=== PATIENT | male | born 1970 | race Caucasian/White ===

== ENCOUNTER 2017-02-08 11:41 | Emergency (ER) | payer BC, OTHER ==
[2017-02-08 13:17] VITALS: BP 142/63
--- NOTE | 2017-02-08 14:05 | UC ---
Skin Complaint HPI - HPI Summary HPI Summary: Patient is a 46yo M who arrives with perineum pain for 4 days which has become worse over the last day. He notes some pus drainage last night with a 2/10 pain while sitting and 0/10 pain while standing. he has never had this before. He denies previous MRSA or skin infections. He is a diabetic and has HTN. He takes several medications and has close follow up with his PCP. Denies other pain or concerns. He has not taken any medication for relief. - History of Current Complaint Hx Obtained From: Patient Onset/Duration: Gradual Onset Skin Exposure Onset/Duration: Days Ago Timing: Constant Onset Severity: Moderate Current Severity: Moderate Pain Intensity: 3 Pain Scale Used: 0-10 Numeric Location: Discrete - perineum Character: Pain, Redness, Raised, Painful Aggravating: Touch, Other - sitting Alleviating: Nothing Associated Signs & Symptoms: Positive: Negative <Chelle Garrett - Last Filed: 02/08/17 13:54> <Alem Langley - Last Filed: 02/09/17 07:05> - History of Current Complaint Chief Complaint: UCSkin Time Seen by Provider: 02/08/17 13:19 Stated Complaint: PAINFUL LUMP -PUS - Allergy/Home Medications Allergies/Adverse Reactions: Allergies Allergy/AdvReac Type Severity Reaction Status Date / Time No Known Allergies Allergy Verified 02/08/17 13:17 Review of Systems Constitutional: Negative Skin: Other - erythematous raised 2X2 lesion with slight warm to touch Eyes: Negative Cardiovascular: Negative Gastrointestinal: Negative Neurovascular: Negative Musculoskeletal: Negative Psychological: Negative All Other Systems Reviewed And Are Negative: Yes <Chelle Garrett - Last Filed: 02/08/17 13:54> PMH/Surg Hx/FS Hx/Imm Hx Previously Healthy: Yes Endocrine History Of: Reports: Diabetes Denies: Thyroid Disease Cardiovascular History Of: Reports: Hypertension Denies: Cardiac Disorders, Pacemaker/ICD Respiratory History Of: Denies: COPD, Asthma GI/ History Of: Denies: Ulcer Psychological History Of: Denies: Anxiety - Surgical History Surgical History: Yes Surgery Procedure, Year, and Place: salIVARY gland removed @ age 19, APPY 2014 - Family History Known Family History: Positive: Cardiac Disease, Hypertension - Social History Occupation: Employed Full-time Lives: With Family Alcohol Use: Occasionally Substance Use Type: None Smoking Status (MU): Never Smoked Tobacco Have You Smoked in the Last Year: No - Immunization History Most Recent Influenza Vaccination: fall 2010 Most Recent Tetanus Shot: unknown Most Recent Pneumonia Vaccination: 2011 <Chelle Garrett - Last Filed: 02/08/17 13:54> Physical Exam Triage Information Reviewed: Yes Appearance: Well-Appearing, No Pain Distress, Well-Nourished Vital Signs: Initial Vital Signs Temp 98.2 F 02/08/17 13:06 Pulse 88 02/08/17 13:06 Resp 20 02/08/17 13:06 BP 142/63 02/08/17 13:06 Pulse Ox 95 02/08/17 13:06 Vital Signs Reviewed: Yes Eye Exam: Normal Eyes: Positive: Conjunctiva Clear ENT Exam: Normal Respiratory: Positive: Chest non-tender, Lungs clear Cardiovascular Exam: Normal Cardiovascular: Positive: RRR Musculoskeletal Exam: Normal Musculoskeletal: Positive: Strength Intact Psychological: Positive: Normal Response To Family, Age Appropriate Behavior Skin: Positive: significant lesion(s) - erythematous painful indurated raised 2X2 lesion with slight warm to touch, draining white discharge <Chelle Garrett - Last Filed: 02/08/17 13:54> Vital Signs: Initial Vital Signs Temp 98.2 F 02/08/17 13:06 Pulse 88 02/08/17 13:06 Resp 20 02/08/17 13:06 BP 142/63 02/08/17 13:06 Pulse Ox 95 02/08/17 13:06 <Alem Langley - Last Filed: 02/09/17 07:05> Course/Dx - Course Course Of Treatment: erythematous painful indurated raised 2X2 lesion with slight warm to touch, draining white discharge. abscess draining copious amounts of pus. Provider used pressure to compress discharge out. culture obtained. cleaned wound. antibiotics x 10 days given for compromised area d/t redness, warmth and patient a diabetic. Patient is OK with discharge and will follow up with PCP. - Differential Diagnoses - Skin Complaint Differential Diagnoses: Abscess, Cellulitis, Impetigo - Diagnoses Provider Diagnoses: Abscess <Chelle Garrett - Last Filed: 02/08/17 13:54> Discharge <Chelle Garrett - Last Filed: 02/08/17 13:54> <Alem Langley - Last Filed: 02/09/17 07:05> - Discharge Plan Condition: Stable Disposition: HOME Prescriptions: Cephalexin CAP* [Keflex CAP*] 500 mg PO QID #40 cap MDD 4 Patient Education Materials: Abscess (ED) Forms: *Work Release Referrals: Jhonny Morales MD [Primary Care Provider] - Additional Instructions: Warm compresses 2-3 times daily. Warm baths will help Take antibiotics as prescribed Take a probiotic on opposite schedule of antibiotic to prevent co-occuring infections or diarrhea If symptoms become worse, please come back for a re-check We will call you if we need to switch the antibiotic that you are on. Images Perineum Male: 1 - painful red 2X2 raised indurated, draining white discharge <Chelle Garrett - Last Filed: 02/08/17 13:54> Attestation Statement User Type: Provider - I was available for consult. This patient was seen by the advanced practice provider. The patient was not presented to, seen by, or examined by me.-Summer <Alem Langley - Last Filed: 02/09/17 07:05>
== END 2017-02-08 13:54 | disposition home or self-care (01) ==
LOC: UCEAST 11:41
DX: L02.215 Cutaneous abscess of perineum (principal); E11.9 Type 2 diabetes mellitus without complications; I10 Essential (primary) hypertension
CPT/HCPCS: 87070; 87205; 87640; 87641; 99212; G0463

== ENCOUNTER 2018-05-02 22:06 | Emergency (ER) | payer BC, OTHER ==
[2018-05-03 00:29] LABS: Hematocrit 39 % (42-52); Hemoglobin 13.4 g/dl (14.0-18.0); Mean Corpuscular HGB Conc 35 g/dl (31-36); Mean Corpuscular Hemoglobin 28 pg (27-31); Mean Corpuscular Volume 81 fL (80-94); Mean Platelet Volume 7.9 um3 (7.4-10.4); Platelet Count 189 10^3/ul (150-450); Red Blood Count 4.78 10^6/ul (4.00-5.40); Red Cell Distribution Width 15 % (10.5-15); White Blood Count 12.1 10^3/ul (3.5-10.8)
[2018-05-03 00:39] LABS: EGFR Non-African American 99.3 (>60)
[2018-05-03 00:50] LABS: ABS Basophils 0.1 10^3/ul (0-0.2); ABS Eosinophils 0.1 10^3/ul (0-0.6); ABS Lymphocytes 1.9 10^3/ul (1.0-4.8); ABS Monocytes 1.3 10^3/ul (0-0.8); ABS Neutrophils 8.8 10^3/ul (1.5-7.7); ABS Nucleated RBC 0 10^3/ul; Eosinophil % 0.6 % (0-6); Lymphocyte % 15.3 % (25-47); Nucleated Red Blood Cells % 0.1
[2018-05-03 02:26] LABS: Urine Appearance Clear; Urine Blood Negative (Negative); Urine Color Straw; Urine Ketones 1+ (Negative); Urine Protein Negative (Negative); Urine Specific Gravity 1.029 (1.010-1.030); Urine Urobilinogen Negative (Negative)
[2018-05-03] MEDS ORDERED: NS 0.9% 1000 ML* 1,000 ML IV ONE (03:00)
[2018-05-03] MEDS ORDERED: Ondansetron INJ* 2 MG/ML VIAL IV ONE (03:00)
[2018-05-03] MEDS ORDERED: Ketorolac INJ* 30 MG/ML 1 ML VIAL IV PUSH ONE (03:00)
[2018-05-03] MEDS ORDERED: Potassium Chlor TAB* 20 MEQ TAB.ER PO ONE (03:01)
--- NOTE | 2018-05-03 04:14 | ED ---
Back Pain - HPI Summary HPI Summary: This is [facility] documenting for attending Dr. Stephen Tyler MD. A 48 y/o male presents to the ED c/o right sided back pain. According to the patient, the pain started in the back near the base of the rib cage yesterday morning. The pain is characterized to be sharp and intermittent. The patient noted he has a history of kidney stones, however the pain he exhibits today is different than to what he felt than. Currently, the pain is at a 3-4/10 in severity. Pt denies any fever, cough, CP, SOB, chills, N/V, or any change/ burning/pain with urination. He noted that the pain is aggravated with deep breathes. PMHx of DM, denies thrombosis. Still have gallbladder. Allergic to dust and pollen. - History of Current Complaint Chief Complaint: EDFlankPain Stated Complaint: BACK PAIN Time Seen by Provider: 05/03/18 01:57 Hx Obtained From: Patient Onset/Duration: Sudden Onset, Lasting Days, Still Present Onset/Duration: Started Days Ago Timing: Constant Severity Initially: Severe Severity Currently: Severe Pain Intensity: 9 Pain Scale Used: 0-10 Numeric Character: Sharp Aggravating Symptom(s): Other - Deep breathes Alleviating Symptom(s): Nothing Associated Signs And Symptoms: Negative: Fever - Allergies/Home Medications Allergies/Adverse Reactions: Allergies Allergy/AdvReac Type Severity Reaction Status Date / Time No Known Allergies Allergy Verified 05/03/18 02:00 Home Medications: Home Medications Empagliflozin [Jardiance] 10 mg PO DAILY 05/03/18 [History Confirmed 05/03/18] Metoprolol Tartrate 100 mg PO DAILY 05/03/18 [History Confirmed 05/03/18] PMH/Surg Hx/FS Hx/Imm Hx Endocrine/Hematology History: Reports: Hx Diabetes Denies: Hx Thyroid Disease Cardiovascular History: Reports: Hx Hypertension, Other Cardiovascular Problems/ Disorders - chronic le edema Denies: Hx Pacemaker/ICD Respiratory History: Denies: Hx Asthma, Hx Chronic Obstructive Pulmonary Disease (COPD) GI History: Denies: Hx Ulcer Musculoskeletal History: Denies: Hx Arthritis, Hx Osteoporosis Sensory History: Denies: Hx Glaucoma, Hx Hearing Aid Opthamlomology History: Denies: Hx Glaucoma Neurological History: Denies: Hx Headaches Psychiatric History: Denies: Hx Anxiety, Hx Panic Disorder - Surgical History Surgery Procedure, Year, and Place: salIVARY gland removed @ age 19, APPY 2013 - Immunization History Date of Tetanus Vaccine: Up to date Date of Influenza Vaccine: Fall 2011 Infectious Disease History: No Infectious Disease History: Denies: Hx Clostridium Difficile, Hx Hepatitis, Hx Human Immunodeficiency Virus (HIV), Hx of Known/Suspected MRSA, Hx Shingles, Hx Tuberculosis, Hx Known/ Suspected VRE, Hx Known/Suspected VRSA, History Other Infectious Disease, Traveled Outside the [place] in Last 30 Days - Family History Known Family History: Positive: Cardiac Disease, Hypertension - Social History Alcohol Use: Occasionally Substance Use Type: Reports: None Smoking Status (MU): Never Smoked Tobacco Have You Smoked in the Last Year: No Review of Systems Negative: Fever, Chills Negative: Chest Pain Negative: Shortness Of Breath, Cough Negative: Vomiting, Nausea Negative: burning, frequency, pain Positive: Other - POSITIVE: Back pain All Other Systems Reviewed And Are Negative: Yes Physical Exam - Summary Physical Exam Summary: GENERAL: Patient is a well developed and nourished male who is lying comfortable in the stretcher. Patient is not in any acute respiratory distress. HEAD AND FACE: Normocephalic EYES: PERRLA, EOMI x 2. EARS: Hearing grossly intact. MOUTH: Oropharynx within normal limits. NECK: Supple, trachea is midline, no adenopathy, no JVD, no carotid bruit. CHEST: Symmetric, no tenderness at palpation LUNGS: Clear to auscultation bilaterally. No wheezing or crackles. CVS: Regular rate and rhythm, S1 and S2 present, no murmurs or gallops appreciated. ABDOMEN: Soft, non-tender. Bowel sounds are normal. No abdominal abnormal pulsations. EXTREMITIES: Full ROM in all major joints, no edema, no cyanosis or clubbing. NEURO: Alert and oriented x 3. No acute neurological deficits. Speech is normal and follows commands. SKIN: Dry and warm Triage Information Reviewed: Yes Vital Signs On Initial Exam: Initial Vitals Temp Pulse Resp BP Pulse Ox 98.7 F 98 18 153/88 95 05/02/18 22:08 05/02/18 22:08 05/02/18 22:08 05/02/18 22:08 05/02/18 22:08 Vital Signs Reviewed: Yes Diagnostics - Vital Signs Vital Signs Temp Pulse Resp BP Pulse Ox 05/03/18 03:00 89 149/89 95 05/03/18 02:30 91 149/85 96 05/03/18 02:01 83 163/82 96 05/03/18 02:00 86 96 05/03/18 01:59 81 96 05/03/18 00:31 97.9 F 87 16 143/88 96 05/02/18 22:08 98.7 F 98 18 153/88 95 - Laboratory Lab Results: Lab Results 05/03/18 05/03/18 05/03/18 Range/Units 00:15 00:15 00:15 WBC 12.1 H (3.5-10.8) 10^3/ul RBC 4.78 (4.00-5.40) 10^6/ul Hgb 13.4 L (14.0-18.0) g/dl Hct 39 L (42-52) % MCV 81 (80-94) fL MCH 28 (27-31) pg MCHC 35 (31-36) g/dl RDW 15 (10.5-15) % Plt Count 189 (150-450) 10^3/ul MPV 7.9 (7.4-10.4) um3 Neut % (Auto) 72.7 (38-83) % Lymph % (Auto) 15.3 L (25-47) % [place] % (Auto) 10.4 H (0-7) % Eos % (Auto) 0.6 (0-6) % Baso % (Auto) 1.0 (0-2) % Absolute Neuts (auto) 8.8 H (1.5-7.7) 10^3/ul Absolute Lymphs (auto) 1.9 (1.0-4.8) 10^3/ul Absolute Monos (auto) 1.3 H (0-0.8) 10^3/ul Absolute Eos (auto) 0.1 (0-0.6) 10^3/ul Absolute Basos (auto) 0.1 (0-0.2) 10^3/ul Absolute Nucleated RBC 0 10^3/ul Nucleated RBC % 0.1 D-Dimer, Quantitative < 200 (Less Than 230) ng/mL Sodium 131 L (135-145) mmol/L Potassium 3.2 L (3.5-5.0) mmol/L Chloride 94 L (101-111) mmol/L Carbon Dioxide 24 (22-32) mmol/L Anion Gap 13 H (2-11) mmol/L BUN 21 (6-24) mg/dL Creatinine 0.83 (0.67-1.17) mg/dL Est GFR ( Amer) 120.2 (>60) Est GFR (Non-Af Amer) 99.3 (>60) BUN/Creatinine Ratio 25.3 H (8-20) Glucose 493 H (70-100) mg/dL Calcium 9.1 (8.6-10.3) mg/dL Total Bilirubin 0.40 (0.2-1.0) mg/dL AST 15 (13-39) U/L ALT 23 (7-52) U/L Alkaline Phosphatase 71 (34-104) U/L C-Reactive Protein 67.05 H (<8.01) mg/L Total Protein 7.9 (6.4-8.9) g/dL Albumin 4.0 (3.2-5.2) g/dL Globulin 3.9 (2-4) g/dL Albumin/Globulin Ratio 1.0 (1-3) Lipase 37 (11.0-82.0) U/L Urine Color Urine Appearance Urine pH (5-9) Ur Specific [place]olt (1.010-1.030) Urine Protein (Negative) Urine Ketones (Negative) Urine Blood (Negative) Urine Nitrate (Negative) Urine Bilirubin (Negative) Urine Urobilinogen (Negative) Ur Leukocyte Esterase (Negative) Urine Glucose (Negative) 18 Range/Units 02:18 WBC (3.5-10.8) 10^3/ul RBC (4.00-5.40) 10^6/ul Hgb (14.0-18.0) g/dl Hct (42-52) % MCV (80-94) fL MCH (27-31) pg MCHC (31-36) g/dl RDW (10.5-15) % Plt Count (150-450) 10^3/ul MPV (7.4-10.4) um3 Neut % (Auto) (38-83) % Lymph % (Auto) (25-47) % [place] % (Auto) (0-7) % Eos % (Auto) (0-6) % Baso % (Auto) (0-2) % Absolute Neuts (auto) (1.5-7.7) 10^3/ul Absolute Lymphs (auto) (1.0-4.8) 10^3/ul Absolute Monos (auto) (0-0.8) 10^3/ul Absolute Eos (auto) (0-0.6) 10^3/ul Absolute Basos (auto) (0-0.2) 10^3/ul Absolute Nucleated RBC 10^3/ul Nucleated RBC % D-Dimer, Quantitative (Less Than 230) ng/mL Sodium (135-145) mmol/L Potassium (3.5-5.0) mmol/L Chloride (101-111) mmol/L Carbon Dioxide (22-32) mmol/L Anion Gap (2-11) mmol/L BUN (6-24) mg/dL Creatinine (0.67-1.17) mg/dL Est GFR ( Amer) (>60) Est GFR (Non-Af Amer) (>60) BUN/Creatinine Ratio (8-20) Glucose (70-100) mg/dL Calcium (8.6-10.3) mg/dL Total Bilirubin (0.2-1.0) mg/dL AST (13-39) U/L ALT (7-52) U/L Alkaline Phosphatase (34-104) U/L C-Reactive Protein (<8.01) mg/L Total Protein (6.4-8.9) g/dL Albumin (3.2-5.2) g/dL Globulin (2-4) g/dL Albumin/Globulin Ratio (1-3) Lipase (11.0-82.0) U/L Urine Color Straw Urine Appearance Clear Urine pH 5.0 (5-9) Ur Specific [place] 1.029 (1.010-1.030) Urine Protein Negative (Negative) Urine Ketones 1+ A (Negative) Urine Blood Negative (Negative) Urine Nitrate Negative (Negative) Urine Bilirubin Negative (Negative) Urine Urobilinogen Negative (Negative) Ur Leukocyte Esterase Negative (Negative) Urine Glucose 3+(>=500 mg/dl) A (Negative) Result Diagrams: 05/03/18 00:15 05/03/18 00:15 Lab Statement: Any lab studies that have been ordered have been reviewed, and results considered in the medical decision making process. - CT CT CHEST/A/P CT Interpretation Completed By: Radiologist - 1. Right basilar atelectasis. 2. Mild cardiomegaly. 3. A small hiatal hernia. ED physician reviewed this radiology report. Back Pain Course/Dx - Course Course Of Treatment: A 48 y/o male presents to the ED c/o right sided back pain. According to the patient, the pain started in the back near the base of the rib cage yesterday morning. The pain is characterized to be sharp and intermittent. A CT Chest/Abdomen/Pelvis revealed 1. Right basilar atelectasis. 2. Mild cardiomegaly. 3. A small hiatal hernia. In the ED course, the patient recieved Visipaque, Toradol, Emerson Clor Er Tab, Zofran and IV fluids. The patient will be discharged with a diagnosis of back pain. Patient is to follow up with PCP in 2-3 days. Pt is agreeable with this plan. - Diagnoses Provider Diagnoses: Back pain Discharge - Sign-Out/Discharge Documenting (check all that apply): Patient Departure - DISCHARGE - Discharge Plan Condition: Stable Disposition: HOME Prescriptions: Cyclobenzaprine TAB* [Flexeril 10 MG TAB*] 10 mg PO BID #20 tab Ibuprofen 800 mg PO TID #20 tablet Patient Education Materials: Back Pain (ED) Referrals: Jhonny Morales MD [Primary Care Provider] - 2 Days (FOLLOW UP WITH PCP IN 2-3 DAYS.) Additional Instructions: RETURN TO ED FOR ANY NEW OR WORSENING SYMPTOMS. - Billing Disposition and Condition Condition: STABLE Disposition: Home
[2018-05-03] MEDS ORDERED: Iodixanol* (CONTRAST) 320 MG/ML 100 ML SDV IV ONE (04:47)
[2018-05-03 06:57] VITALS: BP 161/97
--- NOTE | 2018-05-03 08:15 | RAD ---
HISTORY: pain, right flank pain, no other history is provided COMPARISONS: None TECHNIQUE: Multiple contiguous axial CT scans were obtained of the chest, abdomen, and pelvis after the administration of intravenous contrast. Coronal and sagittal multiplanar reformations are submitted for review.. Oral contrast was not administered. Delayed images were obtained through the abdomen and pelvis. FINDINGS: CHEST NECK AND THYROID: The lower neck and thyroid are unremarkable. CHEST WALL: There is no lower cervical, axillary, or supraclavicular lymphadenopathy by size criteria. HEART AND PERICARDIUM: There is mild biatrial and biventricular enlargement. AORTA AND PULMONARY VASCULATURE: The aorta and pulmonary vasculature are normal. MEDIASTINUM: There is no mediastinal lymphadenopathy by size criteria. NIKKI: There is no hilar lymphadenopathy by size criteria. AIRWAY AND ESOPHAGUS: The airway is unremarkable, without endobronchial filling defect. The esophagus is grossly normal. LUNG PARENCHYMA: There is minimal linear atelectasis of the right lung base.] PLEURA: No pleural abnormalities are noted. BONES AND SOFT TISSUES: Minimal degenerative changes are noted. ABDOMEN/PELVIS: LIVER: The liver measures 24 cm in long axis. The liver is homogeneous in attenuation. BILE DUCTS: There is no intrahepatic or extrahepatic biliary dilatation. GALLBLADDER: The gallbladder is normal, without pericholecystic inflammatory change. PANCREAS: The pancreas is normal, without mass or ductal dilatation. SPLEEN: The spleen is mildly enlarged measuring up to 14 cm in long axis. UPPER GI TRACT: Evaluation of the gastrointestinal tract is limited by incomplete gastric distention. The upper GI tract is unremarkable. SMALL BOWEL & MESENTERY: The small bowel is normal in contour, course, and caliber. There is no obstruction or dilatation. COLON: The colon is normal in contour, course, caliber. There is no pericolonic inflammatory change. The appendix is not identified. There is post surgical change in the region of the cecum. ADRENALS: Normal bilaterally. KIDNEYS: Simple renal cysts are noted. There is no appreciable hydronephrosis or nephrolithiasis. BLADDER: The bladder is distended. PELVIC ORGANS: The prostate gland is normal. The seminal vesicles are symmetric. AORTA: The aorta is normal. IVC: Unremarkable LYMPH NODES: There is no lymphadenopathy by size criteria. ABDOMINAL WALL: There is no evidence for abdominal wall hernia. BONES AND SOFT TISSUES: Degenerative changes are noted most pronounced at L5-L4, L4-L5, and L5-S1. OTHER: None IMPRESSION: 1. HEPATOSPLENOMEGALY. 2. MILD CARDIOMEGALY. 3. MINIMAL RIGHT BASILAR ATELECTASIS. R0
== END 2018-05-03 07:00 | disposition home or self-care (01) ==
LOC: ED 22:06
DX: M54.9 Dorsalgia, unspecified (principal); R16.2 Hepatomegaly with splenomegaly, not elsewhere classified; I51.7 Cardiomegaly; J98.11 Atelectasis; E11.9 Type 2 diabetes mellitus without complications; Z79.84 Long term (current) use of oral hypoglycemic drugs; I10 Essential (primary) hypertension; Z87.442 Personal history of urinary calculi; Z82.49 Family history of ischemic heart disease and other diseases of the circulatory system
CPT/HCPCS: 36415; 71260; 74177; 80053; 81003; 83690; 85025; 85379; 86140; 96374; 99285; A9270-GY; J1885; J2405; Q9967

== ENCOUNTER 2018-05-17 13:00 | Inpatient (IN) | payer OTHER ==
--- NOTE | 2018-05-17 13:21 | ED ---
Respiratory - HPI Summary HPI Summary: This is [facility] documenting for attending Teddy Tyler MD. Pt is a 48 y/o M c/o SOB onset ~1 week ago. Pt was seen 2 weeks ago in the ER with back pain and possible pleurisy, per director of fundraising. He now presents to ED with Assoc. Sx: Increased HR, SOB, non-productive cough. Denies Hx of blood clots, cardiac issues. Aggr. factors: ambulation, deep breaths - onset cough. SHx: None. He notes that he took BP meds this AM. Patient was seen by Dr. Obregon today and was referred to the ED for further w/u and was found to be tachycardic, hypotensive in the office - History of Current Complaint Chief Complaint: EDShortnessOfBreath Stated Complaint: SOB Time Seen by Provider: 05/17/18 13:12 Hx Obtained From: Patient, Family/Flash Ranging Crewmember Onset/Duration: Sudden Onset Current Severity: None Pain Intensity: 0 Character: Cough (Nonproductive), Dyspnea at Rest, Dyspnea on Exertion Sputum Amount: None Aggravating Factor(s): Exertion, Movement, Deep Breaths - onsets cough Alleviating Factor(s): Nothing Associated Signs and Symptoms: SOB - Allergy/Home Medications Allergies/Adverse Reactions: Allergies Allergy/AdvReac Type Severity Reaction Status Date / Time No Known Allergies Allergy Verified 05/17/18 13:08 Home Medications: Home Medications Insulin GLARGINE(*) [Lantus(*)] 50 units SUBCUT DAILY MDD 100 units 05/17/18 [ History Confirmed 05/17/18] Metformin ER (NF) 1,000 mg PO DAILY 05/17/18 [History Confirmed 05/17/18] Metoprolol Succinate XL TAB* [Toprol XL TAB*] 100 mg PO DAILY 05/17/18 [History Confirmed 05/17/18] Multivitamins/Minerals TAB* [Theragran/minerals TAB*] 1 tab PO DAILY 05/17/18 [ History Confirmed 05/17/18] Potassium Chloride [K-Tab ER] 20 meq PO BID 05/17/18 [History Confirmed 05/17/18 ] PMH/Surg Hx/FS Hx/Imm Hx Endocrine/Hematology History: Reports: Hx Diabetes Denies: Hx Thyroid Disease Cardiovascular History: Reports: Hx Hypertension, Other Cardiovascular Problems/ Disorders - chronic le edema Denies: Hx Pacemaker/ICD Respiratory History: Denies: Hx Asthma, Hx Chronic Obstructive Pulmonary Disease (COPD) GI History: Denies: Hx Ulcer History: Denies: Hx Renal Disease Musculoskeletal History: Denies: Hx Arthritis, Hx Osteoporosis Sensory History: Denies: Hx Glaucoma, Hx Hearing Aid Opthamlomology History: Denies: Hx Glaucoma Neurological History: Denies: Hx Headaches Psychiatric History: Denies: Hx Anxiety, Hx Panic Disorder - Surgical History Surgery Procedure, Year, and Place: salIVARY gland removed @ age 19, APPY 2013 - Immunization History Date of Tetanus Vaccine: Up to date Date of Influenza Vaccine: Fall 2011 Infectious Disease History: No Infectious Disease History: Denies: Hx Clostridium Difficile, Hx Hepatitis, Hx Human Immunodeficiency Virus (HIV), Hx of Known/Suspected MRSA, Hx Shingles, Hx Tuberculosis, Hx Known/ Suspected VRE, Hx Known/Suspected VRSA, History Other Infectious Disease, Traveled Outside the [place] in Last 30 Days - Family History Known Family History: Positive: Cardiac Disease, Hypertension - Social History Occupation: Employed Full-time Lives: With Family Alcohol Use: Occasionally Substance Use Type: Reports: None Smoking Status (MU): Never Smoked Tobacco Have You Smoked in the Last Year: No Review of Systems Positive: Other - increased HR Positive: Shortness Of Breath, Cough - non-productive All Other Systems Reviewed And Are Negative: Yes Physical Exam - Summary Physical Exam Summary: GENERAL: Patient is a well developed and nourished __(M/F)__ who is lying comfortable in the stretcher. Patient is not in any acute respiratory distress. HEAD AND FACE: Normocephalic EYES: PERRLA, EOMI x 2. EARS: Hearing grossly intact. MOUTH: Oropharynx within normal limits. NECK: Supple, trachea is midline, no adenopathy, no JVD, no carotid bruit. CHEST: Symmetric, no tenderness at palpation LUNGS: Clear to auscultation bilaterally with decreased breath sound on the right lower lobe. No wheezing or crackles. CVS: Tachycardic, regular rhythm, S1 and S2 present, no murmurs or gallops appreciated. ABDOMEN: Soft, non-tender. Bowel sounds are normal. No abdominal abnormal pulsations. EXTREMITIES: Full ROM in all major joints, no edema, no cyanosis or clubbing. Chronic venous stasis changes in bilat LE. NEURO: Alert and oriented x 3. No acute neurological deficits. Speech is normal and follows commands. SKIN: Dry and warm Triage Information Reviewed: Yes Vital Signs On Initial Exam: Initial Vitals Temp Pulse Resp BP Pulse Ox 98.9 F 105 20 119/63 97 05/17/18 13:02 05/17/18 13:02 05/17/18 13:02 05/17/18 13:02 05/17/18 13:02 Vital Signs Reviewed: Yes Diagnostics - Vital Signs Vital Signs Temp Pulse Resp BP Pulse Ox 05/17/18 13:02 98.9 F 105 20 119/63 97 - Laboratory Result Diagrams: 05/17/18 13:47 05/17/18 13:47 Lab Statement: Any lab studies that have been ordered have been reviewed, and results considered in the medical decision making process. - CT C/T CTA CT Interpretation: Positive (See Comments) - IMPRESSION: Loculated right pleural effusion which is new since previous exam of May 03, 2018. Compressive atelectasis of the right lower lobe is noted. CT Interpretation Completed By: Radiologist - provider has reviewed report. - EKG 1349 Cardiac Rate: Tachycardia - 102 bpm EKG Interpretation: Q-waves seen in inferior leads. EKG Comparison: Other - similar to previous Disposition - Course Course Of Treatment: Pt is a 48 y/o M c/o SOB onset ~1 week ago. Workup is remarkable for leukocytosis with left shift, mild elevated troponin of 0.06. CTA chest shows no PE but shows a moderate sized loculated right pleural effusion which is new compared to CT scan that was done on April. I discussed the results with the patient in details. Patient was subsequently admitted to the hospitalist team. Patient remains chest pain-free. - Diagnoses Provider Diagnoses: Pleural effusion Discharge - Sign-Out/Discharge Documenting (check all that apply): Patient Departure - Discharge Plan Condition: Stable Disposition: ADMITTED TO [facility] Referrals: Jhonny Morales MD [Primary Care Provider] - - Billing Disposition and Condition Condition: STABLE Disposition: Admitted to [facility]
[2018-05-17] MEDS ORDERED: NS 0.9% 1000 ML* 1,000 ML IV ONE (13:39)
[2018-05-17 14:13] LABS: ABS Basophils 0.1 10^3/ul (0-0.2); ABS Eosinophils 0 10^3/ul (0-0.6); ABS Lymphocytes 1.8 10^3/ul (1.0-4.8); ABS Monocytes 1.5 10^3/ul (0-0.8); ABS Neutrophils 14.8 10^3/ul (1.5-7.7); ABS Nucleated RBC 0 10^3/ul; Eosinophil % 0.2 % (0-6); Hematocrit 34 % (42-52); Hemoglobin 11.3 g/dl (14.0-18.0); Lymphocyte % 10.1 % (25-47); Mean Corpuscular HGB Conc 33 g/dl (31-36); Mean Corpuscular Hemoglobin 27 pg (27-31); Mean Corpuscular Volume 82 fL (80-94); Mean Platelet Volume 6.6 um3 (7.4-10.4); Nucleated Red Blood Cells % 0; Platelet Count 392 10^3/ul (150-450); Red Blood Count 4.17 10^6/ul (4.00-5.40); Red Cell Distribution Width 16 % (10.5-15); White Blood Count 18.3 10^3/ul (3.5-10.8)
[2018-05-17] MEDS ORDERED: Iodixanol* (CONTRAST) 320 MG/ML 100 ML SDV IV SCH (14:13)
[2018-05-17 14:22] LABS: INR 1.33 (0.77-1.02)
[2018-05-17 14:49] LABS: EGFR Non-African American 103.6 (>60)
--- NOTE | 2018-05-17 14:49 | RAD ---
Indication: Evaluate for pulmonary embolus. Contrast: Administered 161.7 ml of VISAPAQUE 320 mg/ml There is suboptimal opacification of the pulmonary arteries. No obvious filling defects are noted in the main pulmonary arteries or the left and right pulmonary arteries. Thoracic aorta demonstrates no evidence of aortic dissection. No aneurysmal dilatation is noted. Small 3 to 5 mm pretracheal and AP window lymph nodes are noted. Right hilar adenopathy measuring up to 13 mm. There is a moderate-sized loculated pleural effusion on the right which is new since previous exam of May 03, 2018. Compressive atelectasis is noted. Left lung field is clear. Pleural-based density is noted in the right middle lobe. The visualized abdominal organs are unremarkable. No evidence of rib fracture is noted. IMPRESSION: Loculated right pleural effusion which is new since previous exam of May 03, 2018. Compressive atelectasis of the right lower lobe is noted. No obvious pulmonary embolus is noted although opacification is suboptimal. Small mediastinal lymph nodes of uncertain clinical significance.
[2018-05-17] MEDS ORDERED: cefTRIAXone(*) 1 GM in NS 0.9% 50 ML* 50 ML IVPB ONE (14:56)
[2018-05-17] MEDS ORDERED: Azithromycin IV(*) 500 MG in NS 0.9% 250 ML* 250 ML IVPB ONE (14:56)
[2018-05-17] MEDS ORDERED: Potassium Chlor TAB* 20 MEQ TAB.ER PO ONE ×2 (14:57→16:48)
[2018-05-17] MEDS ORDERED: Dextrose 50% Syringe 50 ML* 25 GM/50 ML SYRINGE IV PUSH PRN (16:48)
[2018-05-17] MEDS ORDERED: NS 0.9% 1000 ML* 1,000 ML IV SCH (17:15)
[2018-05-17] MEDS: Insulin LISPRO* 1 UNITS UNIT SUBCUT SCH (19:20)
[2018-05-17] MEDS: Potassium Chlor TAB* 20 MEQ TAB.ER PO SCH (20:21)
[2018-05-17] MEDS ORDERED: Cyclobenzaprine TAB* 10 MG PO SCH (21:00)
[2018-05-17] MEDS: Heparin VIAL(*) 5000 UNITS/ML VIAL (FIVE THOUSAND) SUBCUT SCH (23:31)
--- NOTE | 2018-05-18 01:46 | HP ---
CC: Dr. Morales; Dr. Aguila * HISTORY AND PHYSICAL: DATE OF ADMISSION: 05/17/18 PRIMARY CARE PROVIDER: Dr. Morales. CONSULTING SURGEON: Dr. Aguila. MY ATTENDING PHYSICIAN WHILE IN THE HOSPITAL: Mirna Mock DO * (report dictated by Nick Estrada NP) CHIEF COMPLAINT: 1. Cough. 2. Shortness of breath. HISTORY OF PRESENT ILLNESS: Mr. Gamboa is a 48-year-old male patient. He has a history of diabetes, hypertension, and morbid obesity and a history of sleep apnea for which he wears a CPAP for and he states he wears it every night. He is coming into the emergency department today stating that about 2 weeks ago he was here, seen in the ED. He was having pain on his right side, worse with taking a deep breath. It was mostly in his right back. He was felt to possibly have a pleurisy. He was sent to his PCP. He had been taking NSAIDs. He said the pain actually resolved; however, he has now noted that over the last several days, he has had progressive worsening shortness of breath. There has been no orthopnea. He has actually had weight loss. No weight gain. He has lost about 20 pounds unexpectedly since August. He said he has not been trying. He states that just anytime he coughs or takes a deep breath, it is really hurting on the right side and it is described as a sharp, stabbing pain. He has noticed that he has been very fatigued and with minimal exertion, he is getting really short of breath. He has not had any chest pressure, heaviness , tightness, or discomfort. No sharp, stabbing pains in the chest. It has been mostly in the right back, just below the shoulder area and near his right flank. He states he has not had any fevers or chills. He has not been having any vomiting or any abdominal discomfort. There has been no nausea, no diarrhea. He states that he has not noted any swelling in his legs, but he was concerned because he just was not getting any better. He went to see his PCP today and they sent him to the ER when it was noted by the PCP that he appeared to hypotensive. He appeared to be that he was mildly tachycardic and we were asked to evaluate for admission. PAST MEDICAL HISTORY: Significant for: 1. Diabetes. 2. Hypertension. 3. Obesity. 4. WILMAN. PAST SURGICAL HISTORY: 1. He has had a thyroid biopsy. 2. Submandibular gland removal. 3. Appendectomy 4 years ago. MEDICATIONS: His home medications according to the list provided include: 1. Multivitamin 1 tablet p.o. daily. 2. Flexeril 10 mg p.o. b.i.d. 3. Ibuprofen 800 mg p.o. t.i.d. 4. Hydrochlorothiazide 25 mg daily. 5. Glucotrol 20 mg p.o. b.i.d. 6. Viagra 100 mg p.o. daily p.r.n. per instructions. 7. Aspirin 325 mg daily. 8. Metformin 1000 mg p.o. daily. 9. Lisinopril 20 mg p.o. daily. 10. Bumex 4 mg p.o. b.i.d. 11. Lantus 50 units subcu daily. 12. Potassium 20 mEq p.o. b.i.d. 13. Victoza 1.8mg subcu daily. 14. Jardiance 10 mg daily. 15. Toprol-XL 100 mg p.o. daily. ALLERGIES TO MEDICATIONS: Include no known drug allergies. FAMILY HISTORY: His mother had diabetes as did his father. His father also had a history of CVA, DE, and CAD. SOCIAL HISTORY: He does not smoke. He does not drink. His surrogate decision maker would be his girlfriend, Haylee. REVIEW OF SYSTEMS: There is no documented fever. He did admit to having a significant weight change. He denies having any double vision. There is no ear discharge. He denies having any rhinorrhea. There was no sore throat. No thyroid enlargement. He denied any chest pain. There is dyspnea on exertion. There is no orthopnea. No nocturnal dyspnea. There was no abdominal pain. No nausea, no vomiting. There was no dysuria. There was no frequency. There was no seizure. No loss of conscious. No pruritus and no skin ulcerations. Review of 14 systems was completed, all others negative. PHYSICAL EXAMINATION GENERAL: At this time, Mr. Gamboa is a 48-year-old male patient. He appears to be older than stated age. He is sitting in the ED stretcher. He does not appear to be in any acute distress. VITAL SIGNS: Blood pressure 125/71, pulse 102, respirations 18, O2 sat 97% on room air, temperature 98.9. HEENT: Head: Atraumatic, normocephalic. Eyes: EOMs are intact. Sclerae anicteric and not pale. Throat: Oral mucosa appears to be dry. No oropharyngeal erythema. NECK: Supple. LUNGS: Diminished in the right side. He had equal diaphragmatic expansion. He does have a cough with taking deep breaths. HEART: Sounds S1, S2. He had a regular rate and rhythm. He had no murmurs, rubs, or gallops. ABDOMEN: Soft. It was flat. It was nontender. Bowel sounds were present. EXTREMITIES: Pulses were 2+ throughout. He had no peripheral edema. He is able to move all 4 extremities with 5/5 strength. NEUROLOGIC: He is awake. He is alert. He is oriented x3. He has no gross focal deficits. SKIN: Intact with the exception he does have an area of erythema noted to the pretibial area in the left lower extremity between the knee and the ankle. DIAGNOSTIC STUDIES/LAB DATA: Labs today revealing a WBC of 18.3, RBC of 4.17, hemoglobin of 11.3, hematocrit of 34, platelet count of 392. His INR was 1.33. PTT 26.9. Sodium was 136, potassium was 3.1, chloride of 94, bicarb of 31, BUN 13, creatinine 0.80, glucose of 73. Lactate 1.4. Calcium 8.6. Mag was 2.1. Total bili 0.4, AST 22, ALT 22, alk phos was 75. CK-MB 6.3. Troponin was 0.06. A repeat troponin was 0.01. BNP of 45. Albumin of 2.7. He had a chest, thorax CTA, which revealed loculated pleural effusion, which is new compared to previous exam on May 03, compressive atelectasis of the right lower lobe, no obvious PE, small mediastinal lymph nodes of uncertain significance. He had an EKG obtained today, which is showing a sinus tachycardia. He does have Q waves in lead III, which he has had previously. There is no new T wave inversions. No ST elevations were noted. It looks similar to the previous EKG with the exception of tachycardia is now new. Old medical records were reviewed. ASSESSMENT AND PLAN: Mr. Gamboa is a 48-year-old male patient coming into the ED today with complaints of again weight loss, back pain. On evaluation today, he had an indeterminate troponin, now it is 0.01 and he had what appeared to be a significant pleural effusion on the right side, he will be admitted under inpatient status for: 1. Right-sided pleural effusion. Again, etiology is unclear. Concern with 20 - pound weight loss. I do think that he needs either a chest tube if this is loculated and possible empyema or just a thoracentesis to start. I did touch base with Dr. Aguila. The patient is hemodynamically stable. At this point, we will try to get a thoracentesis done tomorrow at least to send off for cytology , cell counts, LDH, pH, protein, and cultures. I will get a legionella antigen and Strep pneumo antigen as this could certainly not be pneumonia. I will put him on antibiotics and we will continue to follow. 2. Elevated troponin. Again, the initial troponin was 0.06. It is now 0.01. I will go ahead and repeat another one in 3 hours. I am getting an echo. He will be placed on telemetry. He is not having any active cardiac symptoms. We will continue to follow. EKG appears to be stable. 3. Diabetes. He will be placed on lispro sliding scale. We will continue meds as prescribed. 4. Hypertension. Again in the office, he was hypotensive. He responded to fluids. I just question if he may have been dehydrated. He has not really been eating or drinking. He is on 2 diuretics. I am holding his blood pressure meds with the exception of a beta-norman and we will go ahead and monitor this and restart medications when able. 5. History of obstructive sleep apnea. I will put him on CPAP at night. 6. DVT prophylaxis: He is high risk. He will be placed on heparin subcu. 7. Code status: Full code. 8. Fluids, electrolytes, and nutrition: He can have a consistent carb diet. TIME SPENT: The time spent on the admission was 60 minutes, greater than half the time was spent [id number] with the patient obtaining my history and physical; other half time was spent going over the plan of care with the patient and implementing plan of care. I did discuss the plan of care with my attending, Dr. Mock; she is in agreement. NICK ESTRADA, TEACHER OF [employer]ILY [employer]ENCE [id number]/[facility] #: [id number] LAMINE
[2018-05-18] MEDS: Heparin VIAL(*) 5000 UNITS/ML VIAL (FIVE THOUSAND) SUBCUT SCH ×2 (05:05→12:41)
[2018-05-18 05:57] LABS: ABS Basophils 0 10^3/ul (0-0.2); ABS Eosinophils 0 10^3/ul (0-0.6); ABS Lymphocytes 1.3 10^3/ul (1.0-4.8); ABS Monocytes 1.2 10^3/ul (0-0.8); ABS Neutrophils 10.4 10^3/ul (1.5-7.7); ABS Nucleated RBC 0 10^3/ul; Eosinophil % 0.2 % (0-6); Hematocrit 34 % (42-52); Mean Corpuscular HGB Conc 33 g/dl (31-36); Mean Corpuscular Hemoglobin 27 pg (27-31); Mean Corpuscular Volume 82 fL (80-94); Mean Platelet Volume 6.5 um3 (7.4-10.4); Nucleated Red Blood Cells % 0; Platelet Count 343 10^3/ul (150-450); Red Cell Distribution Width 16 % (10.5-15)
[2018-05-18 06:14] LABS: EGFR Non-African American 118.9 (>60)
[2018-05-18] MEDS: Insulin LISPRO* 1 UNITS UNIT SUBCUT SCH ×3 (07:34→17:26)
[2018-05-18] MEDS ORDERED: Perflutren Lipid Microsphere* 3 ML VIAL ONE (07:54)
[2018-05-18] MEDS: Insulin GLARGINE(*) 1 UNITS UNIT SUBCUT SCH (08:36)
[2018-05-18] MEDS: Metoprolol Succinate XL TAB* 100 MG PO SCH (08:39)
[2018-05-18] MEDS: Potassium Chlor TAB* 20 MEQ TAB.ER PO SCH ×2 (08:40→20:08)
[2018-05-18] MEDS: Aspirin EC TAB* 325 MG PO SCH (08:40)
--- NOTE | 2018-05-18 09:35 | ECHO ---
Patient: [facility] Rec#: [id number] : 1970 Date: 05/18/2018 Age: 48y Height: 170 cm / 66.9 in Weight: 113 kg / 249.1 lbs Sex: M BSA: 2.22 Room#: 431 Admit Date#: 05/17/2018 Type: Inpatient Referring: Nick Estrada NP Reading: Stephen Cervantes MD Certified Pharmacy Tech: Mari Cochran RDCS,RDMS CC: Jhonny Morales MD Transthoracic Echocardiogram Indication: ABN EKG BP: 124/66 HR: 108 Rhythm: Tachycardia Findings History: DM, HTN, WILMAN Technical Comments: The study quality is fair. Left Ventricle: The left ventricular chamber size is normal. Mild concentric left ventricular hypertrophy is observed. Basal interventricular septum shows moderate thickening. There is a focal wall motion abnormality present.On contrast enhanced imaging of the LV, there appears to hypokinesis of the proximal to mid inferior wall. The estimated ejection fraction is 55-60%. There is an E to A reversal in the mitral valve flow pattern suggestive of diastolic dysfunction. Left Atrium: The left atrial chamber size is normal. Right Ventricle: The right ventricular chamber size and systolic function are within normal limits. Right Atrium: The right atrial cavity size is normal. Aortic Valve: The aortic valve is trileaflet. There is no evidence of aortic valve thickening. Systolic excursion of the aortic valve is normal. There is no evidence of aortic regurgitation. There is no evidence of aortic stenosis. Mitral Valve: There is mitral annular calcification. The mitral valve leaflets are mildly thickened. There is no evidence of mitral regurgitation. There is no evidence of mitral stenosis. Tricuspid Valve: The tricuspid valve leaflets are normal. There is no evidence of tricuspid valve regurgitation. Unable to estimate the right ventricular systolic pressure. Pulmonic Valve: The pulmonic valve appears normal. There is a trace pulmonic regurgitation. Pericardium: There is no significant pericardial effusion. Aorta: The aortic root appears normal. There is no dilatation of the aortic arch. Pulmonary Artery: The main pulmonary artery appears normal. Venous: The inferior vena cava appears normal in size. There is a greater than 50% respiratory change in the inferior vena cava dimension. Contrast: Definity was used to optimize study. A total of 2 ml was used Conclusions Somewhat suboptimal imaging due to lung tissue interference and body habitus. Mild concentric left ventricular hypertrophy is observed. There is a focal wall motion abnormality present.On contrast enhanced imaging of the LV, there appears to hypokinesis of the proximal to mid inferior wall. The estimated ejection fraction is 55-60%. No significant valvular disease: There is a trace pulmonic regurgitation. No reports of prior studies are offered for comparison. Measurements Name Value Normal Range RVIDd (AP) 2D 3 cm (0.9 - 2.6) RAd ISD 4CH 4.5 cm (3.4 - 4.9) RA (A4C)W 3.7 cm (2.9 - 4.6) IVSd (2D) 1.5 cm (0.6 - 1) LVPWd (2D) 1.2 cm (0.6 - 1) LVIDd (2D) 4.5 cm (3.6 - 5.4) LVIDs (2D) 2.5 cm - LV FS (2D) 43 % (25 - 45) Aortic Annulus 2.3 cm (1.4 - 2.6) Ao root diameter (2D) 3.2 cm (2.1 - 3.5) Ascending Ao 2.8 cm (2.1 - 3.4) Aortic arch 3.2 cm (1.8 - 3.4) LA dimension (AP) 2D 4.6 cm (2.3 - 3.8) LAd ISD 4CH 5.1 cm (2.9 - 5.3) LA ISD 4CH W 4.4 cm (2.5 - 4.5) Name Value Normal Range LA ESV BP (A/L) index 25 ml/m2 - Name Value Normal Range MV E-wave Vmax 1 m/sec - MV deceleration time 49 msec - MV A-wave Vmax 1.2 m/sec - MV E:A ratio 0.9 ratio - LV lateral e' Vmax 0.13 m/sec - LV E:e' lateral ratio 8 ratio - Name Value Normal Range AV Vmax 1.4 m/sec - AV VTI 22 cm - AV peak gradient 8 mmHg - AV mean gradient 4 mmHg - LVOT Vmax 1.2 m/sec - LVOT VTI 17 cm - LVOT peak gradient 6 mmHg - LVOT mean gradient 3 mmHg - PATRICK Vmax 1 m/sec - Name Value Normal Range MV Vmax 1.3 m/sec - MV VTI 18 cm - MV peak gradient 7 mmHg - MV mean gradient 4 mmHg - MVA (continuity VTI) 3.7 cm2 - Name Value Normal Range RAP 8 mmHg - IVC diameter 1.6 cm - Name Value Normal Range PV Vmax 1.2 m/sec - PV peak gradient 6 mmHg -
[2018-05-18] MEDS: NS 0.9% 1000 ML* 1,000 ML IV SCH (10:09)
[2018-05-18] MEDS ORDERED: Lidocaine 1% INJ* 10 MG/ML 30 ML SDV ONE ×2 (13:20→14:09)
[2018-05-18] MEDS ORDERED: HYDROmorphone INJ* 0.5 MG/0.5 ML SYRINGE IV SLOW PU ONE (14:00)
[2018-05-18] MEDS ORDERED: HYDROmorphone INJ* 0.5 MG/0.5 ML SYRINGE ONE (14:05)
[2018-05-18] MEDS ORDERED: HYDROmorphone INJ* 0.5 MG/0.5 ML SYRINGE IV SLOW PU PRN (14:42)
--- NOTE | 2018-05-18 15:03 | RAD ---
INDICATION: Chest tube insertion COMPARISON: CTA of the chest dated May 17, 2018 that shows a multifocal pleural fluid collection. TECHNIQUE: Single AP portable view of the chest was obtained. FINDINGS: Image quality is compromised due to the relative inferiority of a portable chest x-ray. There is been interval placement of a right-sided chest tube with the tip terminating at the midclavicular mid-level right lung. The heart and mediastinum exhibit normal size and contour. Corresponding to images seen on the prior CT, there is density obscuring the right lung base. There is no large pneumothorax. IMPRESSION: Interval placement of a right-sided chest tube as described above with density obscuring the right lung base corresponding to images on the recent CTA
--- NOTE | 2018-05-18 16:20 | PN ---
Subjective Date of Service: 05/18/18 Interval History: Patient continues to have cough when inhaling deeply. No Chest pain, pain before presentation mostly in back and pleuritic. No Sputum production. No known F/C. No smoking history. No recent hospitalizations or antibiotic use. No N/V abdominal pain, diarrhea, dysuria, or other pain. Has never had a stress test or UT to his knowledge. Sent in from PCP for concern for Q waves on EKG which were at least 4 years old. Family History: Unchanged from Admission Social History: Unchanged from Admission Past Medical History: Unchanged from Admission Objective Active Medications: Acetaminophen (Tylenol Tab*) 650 mg PO Q4H PRN PRN Reason: FEVER/PAIN Aspirin (Ecotrin Ec Tab*) 325 mg PO DAILY [facility] Last Admin: 05/18/18 08:40 Dose: 325 mg Cyclobenzaprine HCl (Flexeril Tab*) 10 mg PO BID PRN PRN Reason: SPASMS Dextrose (D50w Syringe 50 Ml*) 12.5 gm IV PUSH .FOR FS < 60 - SS PRN PRN Reason: FS < 60 Heparin Sodium (Porcine) (Heparin Vial(*)) 5,000 units SUBCUT Q8HR [facility] Hydromorphone HCl (Dilaudid Inj*) 0.5 mg IV SLOW PU Q1H PRN PRN Reason: PAIN Ceftriaxone Sodium 1,000 mg/ (Sodium Chloride) 50 mls @ 200 mls/hr IVPB Q24H [facility] Azithromycin 500 mg/ Sodium (Chloride) 250 mls @ 250 mls/hr IVPB Q24H [facility] Sodium Chloride (Ns 0.9% 1000 Ml*) 1,000 mls @ 100 mls/hr IV PER RATE [facility] Stop: 05/19/18 17:14 Last Admin: 05/18/18 10:09 Dose: 100 mls/hr Alteplase, Recombinant 10 mg/ (Sodium Chloride) 50 mls @ 0 mls/hr INTRAPLEUR ONCE ONE; Protocol Stop: 05/19/18 08:01 Dornase Erlin 5 mg/ Sodium (Chloride) 50 mls @ 0 mls/hr INTRAPLEUR ONCE ONE Stop: 05/19/18 08:01 Insulin Glargine (Lantus(*)) 50 units SUBCUT DAILY [facility] Last Admin: 05/18/18 08:36 Dose: 50 unit Insulin Human Lispro (Humalog*) 0 units SUBCUT AC HIRA; Protocol Last Admin: 05/18/18 12:15 Dose: 6 units Iodixanol (Visipaque* 320 (Contrast)) 92 ml IV ONCE [facility] Stop: 05/19/18 14:12 Last Admin: 05/17/18 14:35 Dose: 92 ml Metoprolol Succinate (Toprol Xl Tab*) 100 mg PO DAILY [facility] Last Admin: 05/18/18 08:39 Dose: 100 mg Potassium Chloride (Klor Con Er Tab*) 20 meq PO BID [facility] Last Admin: 05/18/18 08:40 Dose: 20 meq Vital Signs - 8 hr 05/18/18 05/18/18 05/18/18 08:26 11:11 15:14 Temperature 98.6 F 99.4 F Pulse Rate 118 104 113 Respiratory 16 20 18 Rate Blood Pressure 115/65 100/56 117/69 (mmHg) O2 Sat by Pulse 96 96 94 Oximetry Oxygen Devices in Use Now: None Appearance: Patient is a 48yo male who appears stated age and is sitting in the bed in [facility]. Eyes: No Scleral Icterus, PERRLA Ears/Nose/Mouth/Throat: NL Teeth, Lips, Gums, Clear Oropharnyx, Mucous Membranes Moist Neck: NL Appearance and Movements; NL JVP, Trachea Midline Respiratory: Symmetrical Chest Expansion and Respiratory Effort, - - Diminished breath sounds on right lower lobe. Cardiovascular: NL Sounds; No Murmurs; No JVD, RRR, No Edema Abdominal: NL Sounds; No Tenderness; No Distention, No Hepatosplenomegaly Lymphatic: No Cervical Adenopathy Extremities: No Edema, No Clubbing, Cyanosis, - - Skin changes consistent with venous insufficiency. Skin: No Rash or Ulcers, No Nodules or Sclerosis Neurological: Alert and Oriented x 3, NL Sensation, NL Muscle Strength and Tone , - - CN II-XII intact. Lines/Tubes/Other Access: Clean, Dry and Intact Chest Tube - Bloody drainage. Result Diagrams: 05/18/18 05:27 05/18/18 05:27 Assess/Plan/Problems-Billing Assessment: Patient is a 48yo male with a PMH for DM, HTN, WILMAN here with pleural effusion and elevated troponin with concern for pneumonia and chest tube placement. - Patient Problems (1) Pleural effusion Current Visit: Yes Status: Acute Code(s): J90 - PLEURAL EFFUSION, NOT ELSEWHERE CLASSIFIED SNOMED Code(s): 95450603 Comment: Unilateral. Likely cause of patient's pleuritic chest and back pain. Likely due to pneumonia with elevated WBC count and tachycardia. Continue azithromycin and ceftriaxone. Either from CAP or aspiration pneumonia. Unable to determine. Will treat for CAP pending culture and sensitivities. Urine antigens pending. pleural fluid analysis pending. Cytology pending. (2) Elevated troponin Current Visit: Yes Status: Acute Code(s): R74.8 - ABNORMAL LEVELS OF OTHER SERUM ENZYMES SNOMED Code(s): 140189673 Comment: Likely from demand ischemis from likely pneumonia. Echo and EKG shows possibility of old inferior wall UT. Will need stress test when out of acute phase of illness. (3) Diabetes Current Visit: Yes Status: Acute Code(s): E11.9 - TYPE 2 DIABETES MELLITUS WITHOUT COMPLICATIONS SNOMED Code(s): 01040994 Comment: SSI, moderate control. Hemoglobin A1c pending. May resume home meds at discharge. Adjustments based on A1c. Previously uncontrolled. (4) HTN (hypertension) Current Visit: Yes Status: Acute Code(s): I10 - ESSENTIAL (PRIMARY) HYPERTENSION SNOMED Code(s): 03540731 Comment: Borderline hypotensive. Hold medications except for metoprolol. (5) WILMAN (obstructive sleep apnea) Current Visit: Yes Status: Acute Code(s): G47.33 - OBSTRUCTIVE SLEEP APNEA ( ADULT) (PEDIATRIC) SNOMED Code(s): 17847604 Comment: Continue CPAP. (6) DVT prophylaxis Current Visit: Yes Status: Acute Code(s): HRZ0618 - SNOMED Code(s): 709662447 Comment: Heparin held until AM due to Chest tube. (7) Full code status Current Visit: Yes Status: Acute Code(s): Z78.9 - OTHER SPECIFIED HEALTH STATUS SNOMED Code(s): 678303389 Status and Disposition: Inpatient.
[2018-05-18] MEDS: cefTRIAXone VIAL(*) 1,000 MG in NS 0.9% 50 ML* 50 ML IVPB SCH (16:56)
[2018-05-18] MEDS: Azithromycin IV(*) 500 MG in NS 0.9% 250 ML* 250 ML IVPB SCH (17:42)
[2018-05-18] MEDS: Acetaminophen TAB* 325 MG PO PRN (20:08)
[2018-05-19] MEDS: NS 0.9% 1000 ML* 1,000 ML IV SCH (01:13)
[2018-05-19 05:28] LABS: ABS Basophils 0.1 10^3/ul (0-0.2); ABS Eosinophils 0 10^3/ul (0-0.6); ABS Lymphocytes 1.8 10^3/ul (1.0-4.8); ABS Nucleated RBC 0 10^3/ul; Eosinophil % 0.2 % (0-6); Hematocrit 31 % (42-52); Hemoglobin 10.5 g/dl (14.0-18.0); Lymphocyte % 13.6 % (25-47); Mean Corpuscular HGB Conc 34 g/dl (31-36); Mean Corpuscular Hemoglobin 28 pg (27-31); Mean Corpuscular Volume 82 fL (80-94); Mean Platelet Volume 6.5 um3 (7.4-10.4); Nucleated Red Blood Cells % 0; Platelet Count 326 10^3/ul (150-450); Red Blood Count 3.84 10^6/ul (4.00-5.40); Red Cell Distribution Width 15 % (10.5-15); White Blood Count 12.9 10^3/ul (3.5-10.8)
[2018-05-19 05:42] LABS: EGFR Non-African American 136.5 (>60)
[2018-05-19] MEDS: Heparin VIAL(*) 5000 UNITS/ML VIAL (FIVE THOUSAND) SUBCUT SCH ×3 (05:46→21:33)
--- NOTE | 2018-05-19 07:49 | RAD ---
Indication: Check chest tube placement. Single frontal view of the chest performed at 0434 hours was reviewed. Comparison is made with previous exam dated May 18, 2018. Cardiomegaly is noted. Right basilar atelectasis is noted. This has occurred since previous exam. Right chest tube left lung field is clear. IMPRESSION: RIGHT CHEST TUBE IN PLACE WITH RIGHT BASILAR ATELECTASIS.
[2018-05-19] MEDS ORDERED: Alteplase (CATHFLO)* 10 MG in NS 0.9% 50 ML* 40 ML INTRAPLEUR ONE (08:00)
[2018-05-19] MEDS ORDERED: DORNASE ALFA 1 mg/ml(NF) 5 MG in NS 0.9% 50 ML* 45 ML INTRAPLEUR ONE (08:00)
--- NOTE | 2018-05-19 08:09 | PN ---
Progress Note - Progress Note Date of Service: 05/19/18 Note: POD#1 s/p right chest tube for empyema Mild pain, no dyspnea Chest tube drainage total 650 ml. Still purulent. Was bloody last night Will hold on fibrinolytics this AM, check CT If loculations are mostly resolved, it may not be worth the risk of fibrinolysis.
--- NOTE | 2018-05-19 09:03 | RAD ---
HISTORY: F/U empyema COMPARISONS: May 17, 2018 TECHNIQUE: Multiple contiguous axial CT scans of the chest were obtained without intravenous contrast. Coronal and sagittal multiplanar reformations are also submitted for review. FINDINGS: The study is limited by the lack of intravenous contrast. This limits evaluation of the solid organs and vasculature. NECK AND THYROID: The lower neck and thyroid are unremarkable. CHEST WALL: There is no lower cervical, axillary, or supraclavicular lymphadenopathy by size criteria. HEART AND PERICARDIUM: The heart is unremarkable. AORTA AND PULMONARY VASCULATURE: The aorta and pulmonary vasculature are normal. MEDIASTINUM: There is no mediastinal lymphadenopathy by size criteria. NIKKI: There is no hilar lymphadenopathy by size criteria. AIRWAY AND ESOPHAGUS: The airway is unremarkable, without endobronchial filling defect. The esophagus is grossly normal. LUNG PARENCHYMA: There is consolidation of the basal segments of the right lower lobe. PLEURA: A right-sided chest tube is noted. Again noted is loculated pleural effusion, decreased in size from the previous examination, with persistent small locules lung right middle lobe. There is a small component of pneumothorax. UPPER ABDOMEN: The upper abdomen is unremarkable. BONES AND SOFT TISSUES: No bone or soft tissue abnormalities are noted. OTHER: None. IMPRESSION: 1. RIGHT-SIDED CHEST TUBE WITH PERSISTENT BUT IMPROVED LOCULATED RIGHT PLEURAL EFFUSION. 2. THERE IS CONSOLIDATION OF THE RIGHT LOWER LOBE.
[2018-05-19] MEDS: oxyCODONE TAB* 5 MG TAB PO PRN ×2 (09:13→14:41)
[2018-05-19] MEDS: Lisinopril TAB* 10 MG PO SCH (09:14)
[2018-05-19] MEDS: Metoprolol Succinate XL TAB* 100 MG PO SCH (09:16)
[2018-05-19] MEDS: Aspirin EC TAB* 325 MG PO SCH (09:17)
[2018-05-19] MEDS: Potassium Chlor TAB* 20 MEQ TAB.ER PO SCH ×2 (09:17→21:32)
[2018-05-19] MEDS: Insulin GLARGINE(*) 1 UNITS UNIT SUBCUT SCH (09:17)
[2018-05-19] MEDS: Insulin LISPRO* 1 UNITS UNIT SUBCUT SCH ×3 (09:18→17:16)
[2018-05-19] MEDS: cefTRIAXone VIAL(*) 1,000 MG in NS 0.9% 50 ML* 50 ML IVPB SCH (14:52)
--- NOTE | 2018-05-19 15:03 | OP ---
CC: Dr. Mario Hodgson; Dr. Jhonny Morales * DATE OF OPERATION: 05/18/18 - ROOM #431 DATE OF : 72 SURGEON: Mario Hodgson MD PRE-OP DIAGNOSIS: Right loculated pleural effusion/empyema. POST-OP DIAGNOSIS: Right loculated pleural effusion/empyema. OPERATIVE PROCEDURE: Placement of right chest tube. INDICATIONS: The patient is a 48-year-old male who was admitted to the hospital with increasing cough and dyspnea and found to have a loculated right pleural effusion. I saw him and discussed the situation with him and I recommended a chest tube; given the loculations, I thought that would work the best. He understood the procedure and is agreeable to it. DESCRIPTION OF PROCEDURE: With the patient supine, but inclined towards his left, the right was prepped with antiseptic, draped in a sterile fashion. Sterile gown, gloves, and drapes were utilized. Local anesthetic was administered at approximately the region of the 8th rib laterally and a clamp was used to enter the pleural space and purulent fluid was forthcoming. It flowed relatively freely. A 32-Sami chest tube was placed into the pleural space and sutured to the skin using 0 silk. A bulky gauze dressing was placed and this was hooked to a Pleur-evac, and a total of about 500 mL of this cloudy fluid was forthcoming. A sample sent to the laboratory for culture. He tolerated this well. A bandage was placed and he will return to the medical floor. [id number]/[facility] #: [id number] MTDD
[2018-05-19] MEDS: Azithromycin IV(*) 500 MG in NS 0.9% 250 ML* 250 ML IVPB SCH (15:55)
--- NOTE | 2018-05-19 17:17 | PN ---
Subjective Date of Service: 05/19/18 Interval History: Patient had fever overnight with bloody drainage around chest tube. No cough, SOB, CP, N/V, abdominal pain, dysuria, subjective F/C, dizziness on standing, palpitations. Moderate pain from chest tube site. Decreased blood from chest tube today. Family History: Unchanged from Admission Social History: Unchanged from Admission Past Medical History: Unchanged from Admission Objective Active Medications: Acetaminophen (Tylenol Tab*) 650 mg PO Q4H PRN PRN Reason: FEVER/PAIN Last Admin: 05/18/18 20:08 Dose: 650 mg Aspirin (Ecotrin Ec Tab*) 325 mg PO DAILY [facility] Last Admin: 05/19/18 09:17 Dose: 325 mg Cyclobenzaprine HCl (Flexeril Tab*) 10 mg PO BID PRN PRN Reason: SPASMS Dextrose (D50w Syringe 50 Ml*) 12.5 gm IV PUSH .FOR FS < 60 - SS PRN PRN Reason: FS < 60 Heparin Sodium (Porcine) (Heparin Vial(*)) 5,000 units SUBCUT Q8HR [facility] Last Admin: 05/19/18 14:41 Dose: 5,000 units Hydromorphone HCl (Dilaudid Inj*) 0.5 mg IV SLOW PU Q1H PRN PRN Reason: PAIN Ceftriaxone Sodium 1,000 mg/ (Sodium Chloride) 50 mls @ 200 mls/hr IVPB Q24H [facility] Last Admin: 05/19/18 14:52 Dose: 200 mls/hr Azithromycin 500 mg/ Sodium (Chloride) 250 mls @ 250 mls/hr IVPB Q24H [facility] Last Admin: 05/19/18 15:55 Dose: 250 mls/hr Sodium Chloride (Ns 0.9% 1000 Ml*) 1,000 mls @ 100 mls/hr IV PER RATE [facility] Stop: 05/19/18 17:14 Last Admin: 05/19/18 01:13 Dose: 100 mls/hr Insulin Glargine (Lantus(*)) 50 units SUBCUT DAILY [facility] Last Admin: 05/19/18 09:17 Dose: 50 unit Insulin Human Lispro (Humalog*) 0 units SUBCUT AC [facility]; Protocol Last Admin: 05/19/18 12:03 Dose: 9 units Lisinopril (Prinivil Tab*) 20 mg PO DAILY [facility] Last Admin: 05/19/18 09:14 Dose: 20 mg Metoprolol Succinate (Toprol Xl Tab*) 100 mg PO DAILY [facility] Last Admin: 05/19/18 09:16 Dose: 100 mg Oxycodone HCl (Roxycodone Tab*) 5 mg PO Q4H PRN PRN Reason: PAIN Last Admin: 05/19/18 14:41 Dose: 5 mg Potassium Chloride (Klor Con Er Tab*) 20 meq PO BID [facility] Last Admin: 05/19/18 09:17 Dose: 20 meq Vital Signs - 8 hr 05/19/18 05/19/18 05/19/18 09:13 11:25 11:30 Temperature 98.2 F Pulse Rate 85 Respiratory 18 12 16 Rate Blood Pressure 123/67 (mmHg) O2 Sat by Pulse 96 Oximetry 05/19/18 05/19/18 14:41 15:13 Temperature 97.3 F Pulse Rate 87 Respiratory 18 16 Rate Blood Pressure 137/73 (mmHg) O2 Sat by Pulse 98 Oximetry Oxygen Devices in Use Now: None Appearance: Patient is a 48yo male who appears stated age and is sitting in the bed in [facility]. Eyes: No Scleral Icterus, PERRLA Ears/Nose/Mouth/Throat: NL Teeth, Lips, Gums, Clear Oropharnyx, Mucous Membranes Moist Neck: NL Appearance and Movements; NL JVP, Trachea Midline Respiratory: Symmetrical Chest Expansion and Respiratory Effort, - - Diminished in RLL. Cardiovascular: NL Sounds; No Murmurs; No JVD, RRR, - - 2+ edema with chronic venous stasis changes B/L. Stable. Abdominal: NL Sounds; No Tenderness; No Distention, No Hepatosplenomegaly Lymphatic: No Cervical Adenopathy Extremities: No Edema, No Clubbing, Cyanosis Skin: No Nodules or Sclerosis Neurological: NL Sensation, NL Muscle Strength and Tone, - - CN II-XII intact. Result Diagrams: 05/19/18 05:02 05/19/18 05:02 Microbiology and Other Data: Microbiology 05/18/18 14:10 Gram Stain - Final Pleural Fluid 05/17/18 17:13 Aerobic Blood Culture - Preliminary Blood Venous No Growth Day 1 Anaerobic Blood Culture - Preliminary No Growth Day 1 05/17/18 17:05 Aerobic Blood Culture - Preliminary Blood Venous No Growth Day 1 Anaerobic Blood Culture - Preliminary No Growth Day 1 Assess/Plan/Problems-Billing Assessment: Patient is a 48yo male with a PMH for DM, HTN, WILMAN here with pleural effusion and elevated troponin with concern for pneumonia and chest tube placement. - Patient Problems (1) Pleural effusion Current Visit: Yes Status: Acute Code(s): J90 - PLEURAL EFFUSION, NOT ELSEWHERE CLASSIFIED SNOMED Code(s): 38508859 Comment: Unilateral. Likely cause of patient's pleuritic chest and back pain. Likely due to pneumonia with elevated WBC count and tachycardia. Continue azithromycin and ceftriaxone. Either from CAP or aspiration pneumonia. Unable to determine. Pleural fluid gram stain shows Gram positive cocci consistent with strep. Will treat for CAP pending culture and sensitivities. Urine antigens pending. pleural fluid analysis pending. Cytology negative for malignant cells. Appreciate surigcal input. Will hold intreapleural thrombolytics today per surgery. Reassess tomorrow for appropriateness. Repeat CT chest shows improvement. (2) Elevated troponin Current Visit: Yes Status: Acute Code(s): R74.8 - ABNORMAL LEVELS OF OTHER SERUM ENZYMES SNOMED Code(s): 202522553 Comment: Likely from demand ischemia from likely pneumonia. Echo and EKG shows possibility of old inferior wall HI. Will need stress test when out of acute phase of illness. LDL good, HDL low. (3) Diabetes Current Visit: Yes Status: Acute Code(s): E11.9 - TYPE 2 DIABETES MELLITUS WITHOUT COMPLICATIONS SNOMED Code(s): 58092694 Comment: SSI, moderate control. Hemoglobin A1c 11.4 Will likely need to be discharged on insulin due to A1c. (4) HTN (hypertension) Current Visit: Yes Status: Acute Code(s): I10 - ESSENTIAL (PRIMARY) HYPERTENSION SNOMED Code(s): 69806550 Comment: Hypertensive now. Resume metoprolol and lisinopril. (5) WILMAN (obstructive sleep apnea) Current Visit: Yes Status: Acute Code(s): G47.33 - OBSTRUCTIVE SLEEP APNEA ( ADULT) (PEDIATRIC) SNOMED Code(s): 23032598 Comment: Continue CPAP. (6) DVT prophylaxis Current Visit: Yes Status: Acute Code(s): FFX2781 - SNOMED Code(s): 025853373 Comment: Heparin held until AM due to Chest tube. (7) Full code status Current Visit: Yes Status: Acute Code(s): Z78.9 - OTHER SPECIFIED HEALTH STATUS SNOMED Code(s): 205114579 Status and Disposition: Inpatient.
[2018-05-20] MEDS: oxyCODONE TAB* 5 MG TAB PO PRN ×2 (01:35→12:54)
[2018-05-20 05:09] LABS: ABS Basophils 0 10^3/ul (0-0.2); ABS Eosinophils 0.1 10^3/ul (0-0.6); ABS Lymphocytes 1.1 10^3/ul (1.0-4.8); ABS Monocytes 0.6 10^3/ul (0-0.8); ABS Neutrophils 5.7 10^3/ul (1.5-7.7); ABS Nucleated RBC 0 10^3/ul; Eosinophil % 1.2 % (0-6); Hematocrit 30 % (42-52); Hemoglobin 9.8 g/dl (14.0-18.0); Lymphocyte % 15.2 % (25-47); Mean Corpuscular HGB Conc 33 g/dl (31-36); Mean Corpuscular Hemoglobin 27 pg (27-31); Mean Corpuscular Volume 83 fL (80-94); Mean Platelet Volume 6.4 um3 (7.4-10.4); Nucleated Red Blood Cells % 0; Platelet Count 290 10^3/ul (150-450); Red Blood Count 3.63 10^6/ul (4.00-5.40); Red Cell Distribution Width 15 % (10.5-15); White Blood Count 7.6 10^3/ul (3.5-10.8)
[2018-05-20] MEDS: Heparin VIAL(*) 5000 UNITS/ML VIAL (FIVE THOUSAND) SUBCUT SCH ×3 (05:09→21:21)
[2018-05-20 05:29] LABS: EGFR Non-African American 174.2 (>60)
[2018-05-20] MEDS ORDERED: Dextrose 50% Syringe 50 ML* 25 GM/50 ML SYRINGE IV PUSH PRN (08:38)
[2018-05-20] MEDS: Lisinopril TAB* 10 MG PO SCH (08:46)
[2018-05-20] MEDS: Aspirin EC TAB* 325 MG PO SCH (08:47)
[2018-05-20] MEDS: Metoprolol Succinate XL TAB* 100 MG PO SCH (08:47)
[2018-05-20] MEDS: Potassium Chlor TAB* 20 MEQ TAB.ER PO SCH ×2 (08:48→19:50)
[2018-05-20] MEDS: Insulin GLARGINE(*) 1 UNITS UNIT SUBCUT SCH (08:49)
[2018-05-20] MEDS: Insulin LISPRO* 1 UNITS UNIT SUBCUT SCH ×4 (08:49→17:41)
--- NOTE | 2018-05-20 09:15 | PN ---
Subjective Date of Service: 05/20/18 Interval History: Some chest pain, dry cough. Not SOB. Family History: Unchanged from Admission Social History: Unchanged from Admission Past Medical History: Unchanged from Admission Objective Active Medications: Acetaminophen (Tylenol Tab*) 650 mg PO Q4H PRN PRN Reason: FEVER/PAIN Last Admin: 05/18/18 20:08 Dose: 650 mg Aspirin (Ecotrin Ec Tab*) 325 mg PO DAILY [facility] Last Admin: 05/20/18 08:47 Dose: 325 mg Bumetanide (Bumex Tab*) 1 mg PO DAILY [facility] Cyclobenzaprine HCl (Flexeril Tab*) 10 mg PO BID PRN PRN Reason: SPASMS Dextrose (D50w Syringe 50 Ml*) 12.5 gm IV PUSH .FOR FS < 60 - SS PRN PRN Reason: FS < 60 Heparin Sodium (Porcine) (Heparin Vial(*)) 5,000 units SUBCUT Q8HR [facility] Last Admin: 05/20/18 05:09 Dose: 5,000 units Hydromorphone HCl (Dilaudid Inj*) 0.5 mg IV SLOW PU Q1H PRN PRN Reason: PAIN Ceftriaxone Sodium 1,000 mg/ (Sodium Chloride) 50 mls @ 200 mls/hr IVPB Q24H [facility] Last Admin: 05/19/18 14:52 Dose: 200 mls/hr Azithromycin 500 mg/ Sodium (Chloride) 250 mls @ 250 mls/hr IVPB Q24H [facility] Last Admin: 05/19/18 15:55 Dose: 250 mls/hr Insulin Glargine (Lantus(*)) 50 units SUBCUT DAILY [facility] Last Admin: 05/20/18 08:49 Dose: 50 unit Insulin Human Lispro (Humalog*) 0 units SUBCUT AC [facility]; Protocol Last Admin: 05/20/18 08:49 Dose: 3 units Insulin Human Lispro (Humalog*) 0 units SUBCUT AC [facility]; Protocol Lisinopril (Prinivil Tab*) 20 mg PO DAILY [facility] Last Admin: 05/20/18 08:46 Dose: 20 mg Metoprolol Succinate (Toprol Xl Tab*) 100 mg PO DAILY [facility] Last Admin: 05/20/18 08:47 Dose: 100 mg Oxycodone HCl (Roxycodone Tab*) 5 mg PO Q4H PRN PRN Reason: PAIN Last Admin: 05/20/18 01:35 Dose: 5 mg Potassium Chloride (Klor Con Er Tab*) 20 meq PO BID [facility] Last Admin: 05/20/18 08:48 Dose: 20 meq Vital Signs - 8 hr 05/20/18 05/20/18 01:35 04:36 Respiratory 16 16 Rate Oxygen Devices in Use Now: None Appearance: Alert, in a chair. In good spirits, looks comfortable. Eyes: No Scleral Icterus Respiratory: Symmetrical Chest Expansion and Respiratory Effort, Clear to Percussion, - - Diminished BS R base, CT R chest. Extremities: No Clubbing, Cyanosis, - - 1-2+ edema BL Skin: No Rash or Ulcers, No Nodules or Sclerosis Neurological: Alert and Oriented x 3, NL Sensation Result Diagrams: 05/20/18 04:45 05/20/18 04:45 Microbiology and Other Data: Microbiology 05/18/18 14:10 Gram Stain - Final Pleural Fluid 05/17/18 17:13 Aerobic Blood Culture - Preliminary Blood Venous No Growth Day 1 Anaerobic Blood Culture - Preliminary No Growth Day 1 05/17/18 17:05 Aerobic Blood Culture - Preliminary Blood Venous No Growth Day 1 Anaerobic Blood Culture - Preliminary No Growth Day 1 Assess/Plan/Problems-Billing Assessment: Patient is a 48yo male with a PMH for DM, HTN, WILMAN here with pleural effusion and elevated troponin with concern for pneumonia and chest tube placement. - Patient Problems (1) Pleural effusion Current Visit: Yes Status: Acute Code(s): J90 - PLEURAL EFFUSION, NOT ELSEWHERE CLASSIFIED SNOMED Code(s): 51580371 Comment: R chest. Likely cause of patient's pleuritic chest and back pain. Likely due to pneumonia. Continue azithromycin and ceftriaxone. Either from CAP or aspiration pneumonia. Pleural fluid gram stain shows Gram positive cocci consistent with strep. Will treat for CAP pending culture and sensitivities. Cytology negative for malignant cells. Appreciate surigcal input. Will hold intreapleural thrombolytics today per surgery. Reassess tomorrow for appropriateness. Repeat CT chest shows improvement. (2) Diabetes Current Visit: Yes Status: Acute Code(s): E11.9 - TYPE 2 DIABETES MELLITUS WITHOUT COMPLICATIONS SNOMED Code(s): 36086296 Comment: Pt states his A1C has been about 11 for years. Add carb sliding scale to corrective SS. (3) HTN (hypertension) Current Visit: Yes Status: Acute Code(s): I10 - ESSENTIAL (PRIMARY) HYPERTENSION SNOMED Code(s): 17949525 Comment: Continue metoprolol and lisinopril. (4) WILMAN (obstructive sleep apnea) Current Visit: Yes Status: Acute Code(s): G47.33 - OBSTRUCTIVE SLEEP APNEA ( ADULT) (PEDIATRIC) SNOMED Code(s): 13416195 Comment: Continue CPAP, home equipment. Status and Disposition: Inpatient.
--- NOTE | 2018-05-20 09:28 | PN ---
Progress Note - Progress Note Date of Service: 05/20/18 Note: I discussed the case with Dr. Ogden. Consider repeat CT scan in a few days.
--- NOTE | 2018-05-20 09:56 | PN ---
Progress Note - Progress Note Date of Service: 05/20/18 SOAP: Subjective: Without complaint No SOB, minimal tube pain Objective: Temp Pulse Resp BP Pulse Ox 98.7 F 89 16 154/81 98 05/19/18 23:20 05/19/18 23:20 05/20/18 04:36 05/19/18 23:20 05/19/18 23:20 CT level 875 cc--150 last 24 hours PEX: Lungs with decreased breath sounds in right base. Chest tube in place CT reviewed from yesterday reviewed with patient Assessment: Right pleural empyema, s/p chest tube insertion--improved Plan: Continue drainage IV abx Hold on lytics for now.
[2018-05-20] MEDS: Bumetanide TAB* 2 MG PO SCH (10:19)
[2018-05-20] MEDS ORDERED: Insulin LISPRO* 1 UNITS UNIT SUBCUT SCH (11:30)
[2018-05-20] MEDS: cefTRIAXone VIAL(*) 1,000 MG in NS 0.9% 50 ML* 50 ML IVPB SCH (15:37)
[2018-05-20] MEDS: Azithromycin IV(*) 500 MG in NS 0.9% 250 ML* 250 ML IVPB SCH (16:22)
[2018-05-21] MEDS: Cyclobenzaprine TAB* 10 MG PO PRN ×3 (01:24→23:46)
[2018-05-21] MEDS: Heparin VIAL(*) 5000 UNITS/ML VIAL (FIVE THOUSAND) SUBCUT SCH ×3 (05:36→21:32)
[2018-05-21] MEDS: Lisinopril TAB* 10 MG PO SCH (08:32)
[2018-05-21] MEDS: Potassium Chlor TAB* 20 MEQ TAB.ER PO SCH ×2 (08:32→21:30)
[2018-05-21] MEDS: Aspirin EC TAB* 325 MG PO SCH (08:32)
[2018-05-21] MEDS: Bumetanide TAB* 2 MG PO SCH (08:32)
[2018-05-21] MEDS: Metoprolol Succinate XL TAB* 100 MG PO SCH (08:33)
[2018-05-21] MEDS: Insulin GLARGINE(*) 1 UNITS UNIT SUBCUT SCH (08:33)
[2018-05-21] MEDS: Insulin LISPRO* 1 UNITS UNIT SUBCUT SCH ×6 (08:33→17:33)
--- NOTE | 2018-05-21 10:16 | PN ---
Progress Note - Progress Note Date of Service: 05/21/18 SOAP: Subjective: Some pain at tube site No SOB Objective: Temp Pulse Resp BP Pulse Ox 98.0 F 86 16 142/67 97 05/21/18 07:14 05/21/18 07:14 05/21/18 09:02 05/21/18 07:14 05/21/18 07:14 CT drain total amount about 900 cc's- PEX: Chest tube in position-dressing intact Assessment: Right side empyema-chest tube drainage Plan: Continue drainage IV abx
[2018-05-21] MEDS: oxyCODONE TAB* 5 MG TAB PO PRN ×2 (11:20→23:46)
--- NOTE | 2018-05-21 11:48 | PN ---
Subjective Date of Service: 05/21/18 Interval History: Pain control adequate. Not SOB. No bowel c/o. No new c/o. Family History: Unchanged from Admission Social History: Unchanged from Admission Past Medical History: Unchanged from Admission Objective Active Medications: Acetaminophen (Tylenol Tab*) 650 mg PO Q4H PRN PRN Reason: FEVER/PAIN Last Admin: 05/18/18 20:08 Dose: 650 mg Aspirin (Ecotrin Ec Tab*) 325 mg PO DAILY [facility] Last Admin: 05/21/18 08:32 Dose: 325 mg Bumetanide (Bumex Tab*) 1 mg PO DAILY [facility] Last Admin: 05/21/18 08:32 Dose: 1 mg Cyclobenzaprine HCl (Flexeril Tab*) 10 mg PO BID PRN PRN Reason: SPASMS Last Admin: 05/21/18 09:02 Dose: 10 mg Dextrose (D50w Syringe 50 Ml*) 12.5 gm IV PUSH .FOR FS < 60 - SS PRN PRN Reason: FS < 60 Heparin Sodium (Porcine) (Heparin Vial(*)) 5,000 units SUBCUT Q8HR [facility] Last Admin: 05/21/18 05:36 Dose: 5,000 units Hydromorphone HCl (Dilaudid Inj*) 0.5 mg IV SLOW PU Q1H PRN PRN Reason: PAIN Ceftriaxone Sodium 1,000 mg/ (Sodium Chloride) 50 mls @ 200 mls/hr IVPB Q24H [facility] Last Admin: 05/20/18 15:37 Dose: 200 mls/hr Azithromycin 500 mg/ Sodium (Chloride) 250 mls @ 250 mls/hr IVPB Q24H [facility] Last Admin: 05/20/18 16:22 Dose: 250 mls/hr Insulin Glargine (Lantus(*)) 50 units SUBCUT DAILY [facility] Last Admin: 05/21/18 08:33 Dose: 50 unit Insulin Human Lispro (Humalog*) 0 units SUBCUT [facility]; Protocol Last Admin: 05/21/18 08:33 Dose: 3 units Insulin Human Lispro (Humalog*) 0 units SUBCUT AC [facility]; Protocol Last Admin: 05/21/18 08:33 Dose: 7 units Lisinopril (Prinivil Tab*) 20 mg PO DAILY [facility] Last Admin: 05/21/18 08:32 Dose: 20 mg Metoprolol Succinate (Toprol Xl Tab*) 100 mg PO DAILY [facility] Last Admin: 05/21/18 08:33 Dose: 100 mg Oxycodone HCl (Roxycodone Tab*) 5 mg PO Q4H PRN PRN Reason: PAIN Last Admin: 05/21/18 11:20 Dose: 5 mg Potassium Chloride (Klor Con Er Tab*) 20 meq PO BID [facility] Last Admin: 05/21/18 08:32 Dose: 20 meq Vital Signs - 8 hr 05/21/18 05/21/18 05/21/18 05:02 07:14 08:00 Temperature 98.0 F Pulse Rate 86 Respiratory 17 18 16 Rate Blood Pressure 142/67 (mmHg) O2 Sat by Pulse 97 Oximetry 05/21/18 05/21/18 05/21/18 09:02 11:20 11:22 Temperature Pulse Rate Respiratory 16 16 16 Rate Blood Pressure (mmHg) O2 Sat by Pulse Oximetry Oxygen Devices in Use Now: None Appearance: Alert, in a chair. In good spirits. Looks comfortable. Eyes: No Scleral Icterus Respiratory: - - diminished BS R base Cardiovascular: NL Sounds; No Murmurs; No JVD, RRR, No Edema, - Extremities: No Edema, No Clubbing, Cyanosis Skin: No Rash or Ulcers, No Nodules or Sclerosis, - Neurological: Alert and Oriented x 3, NL Sensation Result Diagrams: 05/20/18 04:45 05/20/18 04:45 Microbiology and Other Data: Microbiology 05/18/18 14:10 Gram Stain - Final Pleural Fluid 05/17/18 17:13 Aerobic Blood Culture - Preliminary Blood Venous No Growth Day 1 Anaerobic Blood Culture - Preliminary No Growth Day 1 05/17/18 17:05 Aerobic Blood Culture - Preliminary Blood Venous No Growth Day 1 Anaerobic Blood Culture - Preliminary No Growth Day 1 Assess/Plan/Problems-Billing Assessment: Patient is a 48yo male with a PMH for DM, HTN, WILMAN here with pleural effusion and elevated troponin with concern for pneumonia and chest tube placement. - Patient Problems (1) Pleural effusion Current Visit: Yes Status: Acute Code(s): J90 - PLEURAL EFFUSION, NOT ELSEWHERE CLASSIFIED SNOMED Code(s): 00009207 Comment: R chest. Likely cause of patient's pleuritic chest and back pain. Likely due to pneumonia. Continue azithromycin and ceftriaxone. Either from CAP or aspiration pneumonia. Pleural fluid gram stain shows Gram positive cocci consistent with strep. Cytology negative for malignant cells. (2) Diabetes Current Visit: Yes Status: Acute Code(s): E11.9 - TYPE 2 DIABETES MELLITUS WITHOUT COMPLICATIONS SNOMED Code(s): 31723367 Comment: Pt states his A1C has been about 11 for years. Continue carb counting scale and corrective SS. (3) HTN (hypertension) Current Visit: Yes Status: Acute Code(s): I10 - ESSENTIAL (PRIMARY) HYPERTENSION SNOMED Code(s): 19122341 Comment: Continue metoprolol and lisinopril. (4) WILMAN (obstructive sleep apnea) Current Visit: Yes Status: Acute Code(s): G47.33 - OBSTRUCTIVE SLEEP APNEA ( ADULT) (PEDIATRIC) SNOMED Code(s): 89868417 Comment: Continue CPAP, home equipment. Status and Disposition: Inpatient.
[2018-05-21] MEDS: cefTRIAXone VIAL(*) 1,000 MG in NS 0.9% 50 ML* 50 ML IVPB SCH (14:49)
[2018-05-21] MEDS: Azithromycin IV(*) 500 MG in NS 0.9% 250 ML* 250 ML IVPB SCH (15:43)
[2018-05-22] MEDS: oxyCODONE TAB* 5 MG TAB PO PRN (04:41)
[2018-05-22] MEDS: Acetaminophen TAB* 325 MG PO PRN (04:42)
[2018-05-22] MEDS: Heparin VIAL(*) 5000 UNITS/ML VIAL (FIVE THOUSAND) SUBCUT SCH ×2 (05:29→13:13)
[2018-05-22] MEDS: Bumetanide TAB* 2 MG PO SCH (08:22)
[2018-05-22] MEDS: Metoprolol Succinate XL TAB* 100 MG PO SCH (08:22)
[2018-05-22] MEDS: Aspirin EC TAB* 325 MG PO SCH (08:23)
[2018-05-22] MEDS: Potassium Chlor TAB* 20 MEQ TAB.ER PO SCH (08:24)
--- NOTE | 2018-05-22 08:47 | PN ---
Subjective Date of Service: 05/22/18 Interval History: Pain control good. No bowel c/o. Not SOB. No cough. No new c/o. Anxious to go home and return to work. Family History: Unchanged from Admission Social History: Unchanged from Admission Past Medical History: Unchanged from Admission Objective Active Medications: Acetaminophen (Tylenol Tab*) 650 mg PO Q4H PRN PRN Reason: FEVER/PAIN Last Admin: 05/22/18 04:42 Dose: 650 mg Aspirin (Ecotrin Ec Tab*) 325 mg PO DAILY [facility] Last Admin: 05/22/18 08:23 Dose: 325 mg Bumetanide (Bumex Tab*) 1 mg PO DAILY [facility] Last Admin: 05/22/18 08:22 Dose: 1 mg Cyclobenzaprine HCl (Flexeril Tab*) 10 mg PO BID PRN PRN Reason: SPASMS Last Admin: 05/21/18 23:46 Dose: 10 mg Dextrose (D50w Syringe 50 Ml*) 12.5 gm IV PUSH .FOR FS < 60 - SS PRN PRN Reason: FS < 60 Heparin Sodium (Porcine) (Heparin Vial(*)) 5,000 units SUBCUT Q8HR [facility] Last Admin: 05/22/18 05:29 Dose: 5,000 units Hydromorphone HCl (Dilaudid Inj*) 0.5 mg IV SLOW PU Q1H PRN PRN Reason: PAIN Ceftriaxone Sodium 1,000 mg/ (Sodium Chloride) 50 mls @ 200 mls/hr IVPB Q24H [facility] Last Admin: 05/21/18 14:49 Dose: 200 mls/hr Azithromycin 500 mg/ Sodium (Chloride) 250 mls @ 250 mls/hr IVPB Q24H [facility] Last Admin: 05/21/18 15:43 Dose: 250 mls/hr Insulin Glargine (Lantus(*)) 45 units SUBCUT DAILY [facility] Insulin Human Lispro (Humalog*) 0 units SUBCUT AC [facility]; Protocol Last Admin: 05/21/18 17:33 Dose: 3 units Insulin Human Lispro (Humalog*) 0 units SUBCUT AC [facility]; Protocol Last Admin: 05/21/18 17:33 Dose: 7 units Lisinopril (Prinivil Tab*) 20 mg PO DAILY [facility] Last Admin: 05/21/18 08:32 Dose: 20 mg Metoprolol Succinate (Toprol Xl Tab*) 100 mg PO DAILY [facility] Last Admin: 05/22/18 08:22 Dose: 100 mg Oxycodone HCl (Roxycodone Tab*) 5 mg PO Q4H PRN PRN Reason: PAIN Last Admin: 05/22/18 04:41 Dose: 5 mg Potassium Chloride (Klor Con Er Tab*) 20 meq PO BID [facility] Last Admin: 05/22/18 08:24 Dose: 20 meq Vital Signs - 8 hr 05/22/18 05/22/18 05/22/18 03:15 03:54 04:41 Temperature 97.7 F Pulse Rate 84 Respiratory 16 18 Rate Blood Pressure 160/92 (mmHg) O2 Sat by Pulse 99 Oximetry 05/22/18 07:28 Temperature 97.5 F Pulse Rate 73 Respiratory 20 Rate Blood Pressure 169/93 (mmHg) O2 Sat by Pulse 98 Oximetry Oxygen Devices in Use Now: None Appearance: Alert, in a chair. In good spirits. Looks comfortable. Eyes: No Scleral Icterus Respiratory: Symmetrical Chest Expansion and Respiratory Effort, Clear to Auscultation, Clear to Percussion Cardiovascular: NL Sounds; No Murmurs; No JVD, RRR, No Edema, - Extremities: No Edema, No Clubbing, Cyanosis, - Skin: No Rash or Ulcers, No Nodules or Sclerosis, - Neurological: Alert and Oriented x 3, NL Sensation Result Diagrams: 05/20/18 04:45 05/20/18 04:45 Microbiology and Other Data: Microbiology 05/18/18 14:10 Gram Stain - Final Pleural Fluid 05/17/18 17:13 Aerobic Blood Culture - Preliminary Blood Venous No Growth Day 1 Anaerobic Blood Culture - Preliminary No Growth Day 1 05/17/18 17:05 Aerobic Blood Culture - Preliminary Blood Venous No Growth Day 1 Anaerobic Blood Culture - Preliminary No Growth Day 1 Assess/Plan/Problems-Billing Assessment: Patient is a 48yo male with a PMH for DM, HTN, WILMAN here with pleural effusion and elevated troponin with concern for pneumonia and chest tube placement. - Patient Problems (1) Pleural effusion Current Visit: Yes Status: Acute Code(s): J90 - PLEURAL EFFUSION, NOT ELSEWHERE CLASSIFIED SNOMED Code(s): 66117102 Comment: R chest. Likely cause of patient's pleuritic chest and back pain. Likely due to pneumonia. Stop azithromycin, continue ceftriaxone. Either from CAP or aspiration pneumonia. Pleural fluid grew strep. Cytology negative for malignant cells. Midline catheter requested for home IV antibiotic tx. Dr. Bustamante's consultation appreciated. Pt discharge on ceftriaxone daily for 3 wks, fup Dr. Maldonado (2) Diabetes Current Visit: Yes Status: Acute Code(s): E11.9 - TYPE 2 DIABETES MELLITUS WITHOUT COMPLICATIONS SNOMED Code(s): 89770051 Comment: Pt states his A1C has been about 11 for years. Continue carb counting scale and corrective SS. Reduce Lantus to 45 U daily as FS 95 8/6 AM. Patient requests he continue on his prior diabetes meds until he sees an head nurse. (3) HTN (hypertension) Current Visit: Yes Status: Acute Code(s): I10 - ESSENTIAL (PRIMARY) HYPERTENSION SNOMED Code(s): 34234885 Comment: Continue metoprolol and lisinopril. (4) WILMAN (obstructive sleep apnea) Current Visit: Yes Status: Acute Code(s): G47.33 - OBSTRUCTIVE SLEEP APNEA ( ADULT) (PEDIATRIC) SNOMED Code(s): 42884163 Comment: Continue CPAP, home equipment. Status and Disposition: Inpatient.
[2018-05-22] MEDS: Lisinopril TAB* 10 MG PO SCH (08:49)
[2018-05-22] MEDS: Insulin LISPRO* 1 UNITS UNIT SUBCUT SCH ×4 (08:49→13:14)
[2018-05-22] MEDS ORDERED: Insulin GLARGINE(*) 1 UNITS UNIT SUBCUT SCH (09:00)
--- NOTE | 2018-05-22 09:11 | PN ---
Progress Note - Progress Note Date of Service: 05/22/18 Note: Chest tube for right empyema Feeling well, no fever, no dyspnea CT drainage almost nil last 24 hrs Breathing easy, unlabored D/C chest tube today Disch home on abx per hospitalist/ID F/U as outpatient with CT scan at conclusion of ABX
--- NOTE | 2018-05-22 11:16 | PN ---
Progress Note - Progress Note Date of Service: 05/22/18 - CHEST TUBE REMOVAL Note: Right chest tube removed with ease;xeroform occlusive dressing applied;pt tolerated well;will followup in our office next week. MarylinCHIEF CHEMIST
--- NOTE | 2018-05-22 13:39 | PN ---
Progress Note - Progress Note Date of Service: 05/22/18 Note: Time spent on discharge 50 minutes, including discussion with patient, , CM , nurse, exam of patient, review of EMR and preparation of discharge documents.
[2018-05-22] MEDS: cefTRIAXone VIAL(*) 1,000 MG in NS 0.9% 50 ML* 50 ML IVPB SCH (14:50)
--- NOTE | 2018-05-22 15:00 | CONS ---
CONSULTATION REPORT: DATE OF CONSULT: 05/22/18 REQUESTING PHYSICIAN: Case Delcid MD. CONSULTING SERVICE: Infectious Disease. REASON FOR CONSULT: Empyema. IMPRESSION: 1. Right chest empyema and pneumonia due to Strep intermedius. He does have advanced decay of one of his teeth, which I think is the likely source. He has had a chest tube in and subsequently taken out with significant improvement in the amount of fluid remaining. 2. Obesity. 3. Diabetes, insulin dependent. RECOMMENDATIONS: Continue ceftriaxone 2 g daily. He has had 5 days and we will add 3 more weeks via midline or PICC. Weekly CBC, CMP, CRP. Follow up with me in 1 to 2 weeks. We will repeat chest imaging towards the end of treatment to ensure resolution of the remaining pleural fluid. HISTORY OF PRESENT ILLNESS: This is a 48-year-old diabetic man admitted with right chest pain that had been there for about 2 weeks, seen in the ER. Initial CT scan was unremarkable by his report. His chest symptoms have improved initially and then got much worse and was lethargic. He did not want to go to work and so, he went to saw Dr. Hobson who directed him to the emergency room. A chest CT showed loculated pleural collection in right with adjacent infiltrate. He had not had cough, fever, chills, or sweats. His C- reactive protein was 150. His white blood cell count is 18. He was started on Zosyn and ceftriaxone, azithromycin. His white count is down to 7 today. He had a chest tube placed on 05/18/18 to drain what was initially purulent fluid. Gram stain of the fluid showed gram-positive cocci in chains, the culture grew Strep intermedius, it is pansensitive. He has been on ceftriaxone, tolerating it well. PAST MEDICAL HISTORY: 1. Insulin-dependent diabetes. 2. Obesity. 3. Obstructive sleep apnea. 4. Status post thyroid biopsy. 5. Status post submandibular gland resection. 6. Status post appendectomy. MEDICATIONS: 1. Tylenol. 2. Aspirin. 3. Bumex. 4. Heparin subcutaneous injection. 5. Dilaudid as needed. 6. Insulin glargine. 7. Insulin lispro. 8. Lisinopril. 9. Ceftriaxone. ALLERGIES: No known drug allergies. FAMILY HISTORY: No recurrent infections. SOCIAL HISTORY: He lives in [place]. He has no travel or sick contacts. He works at [employer]. REVIEW OF SYSTEMS: All negative except as noted above in the history of present illness. PHYSICAL EXAM: Vital Signs: Temperature 37, heart rate is 80, respiratory rate 16, blood pressure 131/72, oxygen saturation 100% on room air. General: He is awake and not in distress. Neurologic: He is oriented x3. Follows commands. HEENT: There is no conjunctival hemorrhage. Oropharynx without lesions. Neck: Supple without mass. Heart: Regular rate and rhythm without murmurs, rubs, or gallops. Lungs: Absent breath sounds at the right base without egophony. Abdomen: Soft, nontender, and nondistended. There are bowel sounds present. Skin: There are no rashes or splinter hemorrhages. Musculoskeletal: There is no spinal tenderness to palpation. DIAGNOSTIC STUDIES/LAB DATA: White blood cell count 7, hemoglobin 9, platelets 290. Creatinine is 0.5. C-reactive protein was 152 on admission. Please see impressions and recommendations outlined above, which I have discussed with Dr. Delcid. Thanks for asking me to see Mr. Gamboa in consultation. [id number]/[facility] #: [id number] MTDTiago
[2018-05-22 15:08] VITALS: BP 128/68
--- NOTE | 2018-05-22 23:24 | DS ---
CC: Dr. Dempsey; Dr. Bustamante; Dr. Hodgson * DISCHARGE SUMMARY: DATE OF ADMISSION: 05/17/18 DATE OF DISCHARGE: 05/22/18 HISTORY OF PRESENT ILLNESS: This 48-year-old man presented with cough and shortness of breath. He came to the emergency room complaining of pain in his right side and right back. He had originally been seen in the emergency room 2 weeks prior and sent to his PCP. He was given NSAIDs. In the emergency room, his temperature was 98.9. He had a right-sided pleural effusion. He has a history of a 20-pound weight loss. He had a chest tube inserted. The fluid removed was purulent. He was started on intravenous antibiotics. The culture grew out Streptococcus intermedius. One of the antibiotics was stopped and he was continued on ceftriaxone. Cytology was negative on the pleural fluid. Clinically, he did very well. The chest tube was removed on the day of discharge. He had some pain when the chest tube was in, but did not feel that he required any analgesics with the chest tube out. His last temperature over 100 degrees was on 05/18/18. His white count initially was 18.3 and fell to 7.6 by 05/20/18. His CRP was 152 on 05/20/18 and was not repeated. The patient himself is aware that his diabetes has been under poor control for at least a year. His A1c has been measuring about 11 for the past year. It was 11.4 on 05/18/18 here. I did change him to short-acting insulins by sliding scale with meals and long-acting insulin; however, the patient stated he was in the process of making an appointment to see an wall covering contractor and preferred to simply go back on his old regimen until he saw the wall covering contractor. That is what I put in his discharge medications by his choice. FINAL DIAGNOSES: 1. Right-sided empyema. 2. Diabetes. 3. Hypertension. 4. Obstructive sleep apnea. DISCHARGE MEDICATIONS: 1. Ceftriaxone 2 g daily for 21 days. 2. Liraglutide mL subcutaneously daily. 3. Lisinopril 20 mg daily. 4. Glipizide 20 mg b.i.d. 5. Hydrochlorothiazide 25 mg daily. 6. Bumetanide 4 mg b.i.d. 7. Aspirin 325 mg daily. 8. Sildenafil 100 mg as prescribed. 9. Empagliflozin 10 mg daily. 10. Cyclobenzaprine 10 mg b.i.d. 11. Ibuprofen 800 mg t.i.d. 12. Multivitamin with minerals daily. 13. Metformin 1000 mg daily. 14. Glargine insulin 50 units daily. 15. Potassium 20 mEq b.i.d. 16. Metoprolol succinate 100 mg daily. [id number]/[facility] #: [id number] MTDD
== END 2018-05-22 17:53 | disposition home or self-care (01) | DRG 177 ==
LOC: ED 13:00 → MEDTELE 17:01
PROVIDERS: ADMIT Hospitalist; ATTEND Internal Medicine
PROC: 0W9930Z Drainage of Right Pleural Cavity with Drainage Device, Percutaneous Approach (ICD-10-PCS; principal; 2018-05-17)
PROC: 0WP9X0Z Removal of Drainage Device from Right Pleural Cavity, External Approach (ICD-10-PCS; 2018-05-22)
DX: J86.9 Pyothorax without fistula (principal); J15.4 Pneumonia due to other streptococci; J90 Pleural effusion, not elsewhere classified; J98.11 Atelectasis; I95.9 Hypotension, unspecified; I10 Essential (primary) hypertension; E66.01 Morbid (severe) obesity due to excess calories; G47.33 Obstructive sleep apnea (adult) (pediatric); R00.0 Tachycardia, unspecified; R74.8 Abnormal levels of other serum enzymes; E11.65 Type 2 diabetes mellitus with hyperglycemia; I87.8 Other specified disorders of veins; K02.9 Dental caries, unspecified; Z79.82 Long term (current) use of aspirin; Z79.4 Long term (current) use of insulin; Z99.81 Dependence on supplemental oxygen; Z82.3 Family history of stroke; Z83.3 Family history of diabetes mellitus; Z82.49 Family history of ischemic heart disease and other diseases of the circulatory system; Z68.39 Body mass index [BMI] 39.0-39.9, adult
CPT/HCPCS: 36415; 71045; 71250; 71275; 80048; 80053; 80061; 82553; 83036; 83605; 83735; 83880; 83986; 84145; 84484; 85025; 85610; 85730; 86140; 87040; 87070; 87077; 87186; 87205; 88112; 93005; 93306; 94660; 99284; A9270-GY; C8929; J0456; J0696; J1170; J1644; J2997; J7639; Q9967

== ENCOUNTER 2024-05-19 22:24 | Inpatient (IN) ==
[2024-05-19 22:46] LABS: ABS Basophils 0.1 10^3/uL (0.0-0.1); ABS Eosinophils 0.3 10^3/uL (0.0-0.5); ABS Lymphocytes 2.6 10^3/uL (1.0-4.8); ABS Monocytes 0.8 10^3/uL (0.0-1.1); ABS Nucleated RBC 0.01 10^3/ul; Eosinophil % 3.2 %; Hematocrit 38.6 % (38-53); Hemoglobin 13.1 g/dL (13.2-16.3); Lymphocyte % 23.9 %; Mean Corpuscular Hemoglobin 26.7 pg (27-33); Mean Corpuscular Volume 78.5 fL (80-97); Mean Platelet Volume 7.5 fL (7.5-11.2); Platelet Count 232 10^3/uL (150-450); Red Blood Count 4.91 10^6/uL (4.06-5.63); Red Cell Distribution Width 15.9 % (12-17); White Blood Count 10.8 10^3/uL (3.6-10.2)
[2024-05-19 22:53] LABS: Activated Partial Thrombo Time 28.9 seconds (26.0-38.0); INR 1.06 (0.83-1.13)
[2024-05-19] MEDS: TENECTEPLASE 50 MG VIAL KIT 5 MG/ML (reconstituted) IV ONE (23:06)
[2024-05-19 23:24] LABS: Albumin/Globulin Ratio 1.3 (1-3); Calcium 8.9 mg/dL (8.6-10.3); Creatinine, Serum 0.94 mg/dL (0.67-1.17); Direct Bilirubin 0.1 mg/dL (0.03-0.18); Globulin 3.1 g/dL (2-4); Indirect Bilirubin 0.5 mg/dL (0.3-1.0); Potassium 3.1 mmol/L (3.5-5.0); Total Bilirubin 0.6 mg/dL (0.2-1.0); Total Protein 7.1 g/dL (6.4-8.9); eGFR CKD-EPI 96.9 (>60)
[2024-05-20] MEDS: Labetalol IV 5 MG/ML 20 ml VIAL IV PUSH PRN (00:43)
[2024-05-20 01:31] LABS: Magnesium 1.9 mg/dL (1.9-2.7)
[2024-05-20] MEDS ORDERED: Labetalol IV 5 MG/ML 20 ml VIAL IV PUSH PRN (01:48)
[2024-05-20 03:11] LABS: Urine Appearance Clear; Urine Bilirubin Negative (Negative); Urine Blood Negative (Negative); Urine Color Light-Yellow; Urine Glucose 4+ (>=1000 mg/dL) (Negative); Urine Ketones Negative (Negative); Urine Nitrite Negative (Negative); Urine Protein Trace (Negative); Urine Urobilinogen Negative (Negative); Urine pH 5.5 (5.0-8.0)
[2024-05-20] MEDS: Potassium Chlor 20 meq TAB.ER PO ONE (04:38)
[2024-05-20] MEDS: Iodixanol (CONTRAST) 320 MG/ML 100 ML SDV IV ONE (04:43)
[2024-05-20 09:09] LABS: Anion Gap 11 mmol/L (2-16); Blood Urea Nitrogen 17 mg/dL (6-24); CO2 Carbon Dioxide 28 mmol/L (22-32); Calcium 8.3 mg/dL (8.6-10.3); Chloride 102 mmol/L (101-111); Creatinine, Serum 0.77 mg/dL (0.67-1.17); Glucose 123 mg/dL (70-100); Sodium 141 mmol/L (135-145); eGFR CKD-EPI 107.1 (>60)
[2024-05-20] MEDS: Potassium Chlor 20 meq TAB.ER PO SCH (09:54)
[2024-05-20] MEDS: Empagliflozin 25 MG TAB PO SCH (09:54)
[2024-05-20] MEDS: Insulin GLARGINE 100 un/ml 10 ml VIAL SUBCUT SCH (09:58)
[2024-05-20] MEDS: Sulfur Hexaflouride MICROSPHR 25 MG VIAL IV ONE (10:40)
[2024-05-21 05:00] LABS: ABS Basophils 0.1 10^3/uL (0.0-0.1); ABS Eosinophils 0.3 10^3/uL (0.0-0.5); ABS Monocytes 0.7 10^3/uL (0.0-1.1); ABS Neutrophils 6.4 10^3/uL (1.5-7.6); Eosinophil % 2.6 %; Hematocrit 39.4 % (38-53); Lymphocyte % 20.8 %; Mean Corpuscular Hemoglobin 26.3 pg (27-33); Mean Corpuscular Hgb Conc 33.1 g/dL (31-36); Mean Corpuscular Volume 79.7 fL (80-97); Mean Platelet Volume 7.2 fL (7.5-11.2); Platelet Count 221 10^3/uL (150-450); Red Blood Count 4.94 10^6/uL (4.06-5.63); Red Cell Distribution Width 16.1 % (12-17); White Blood Count 9.5 10^3/uL (3.6-10.2)
[2024-05-21 05:19] LABS: Calcium 8.5 mg/dL (8.6-10.3); Creatinine, Serum 0.84 mg/dL (0.67-1.17); Potassium 3.4 mmol/L (3.5-5.0); eGFR CKD-EPI 104.3 (>60)
[2024-05-21] MEDS: Potassium Chlor 20 meq TAB.ER PO ONE (06:30)
[2024-05-21 16:42] VITALS: BP 147/78
[2024-05-22] MEDS ORDERED: Aspirin EC 81 mg TAB.EC (enteric coated) PO SCH (09:00)
== END 2024-05-21 16:40 | disposition home or self-care (01) | DRG 45 ==
LOC: ED 22:24 → EDHOLD 05-20 00:03 → ICU 05-20 01:29
PROVIDERS: ADMIT Student in an Organized Health Care Education/Training Program; ATTEND Internal Medicine Pulmonary Disease